=== PATIENT | male | born 1955 | race Caucasian/White ===

== ENCOUNTER 2017-01-22 05:36 | Emergency (ER) | payer OTHER ==
[~2017-01-22] VITALS: Ht 180.3 cm; Wt 76.2 kg
[~2017-01-22 05:36] MED LIST: ALBUTEROL2.5 MG/3 M INH; CENTRUM ULTRA1 EAC1 PO; CHANTIX1 MG PO; FLOVENT HFA12 GM INH; GINKGO BILOBA120 M1 PO; IBUPROFEN800 MG PO; IPRAT-ALBUT 0.5-3 ML INH; MONTELUKAST SOD10 MG PO; PERCOCET 5-3251 EACH PO; POTASSIUM CHLO10 MEQ PO; PREDNISONE20 MG PO; SINGULAIR10 MG PO; VITAMIN C500 M1 PO; ZITHROMAX250 MG PO
[2017-01-22] MEDS ORDERED: ASPIR-LOW81 MG PO (05:55)
[2017-01-22] MEDS ORDERED: IPRAT-ALBUT 0.5-3 ML INH (05:57)
[2017-01-22] MEDS ORDERED: LISINOPRIL10 MG PO (05:58)
[2017-01-22] MEDS ORDERED: PLAVIX75 MG PO (05:58)
[2017-01-22] MEDS ORDERED: ISOSORBIDE MONO30 MG PO (05:59)
[2017-01-22] MEDS ORDERED: ULTRAM50 MG PO (06:00)
[2017-01-22] MEDS ORDERED: AUGMENTIN 875-1 EACH PO (06:49)
[2017-01-22] MEDS ORDERED: PREDNISONE20 MG PO (06:49)
--- NOTE | 2017-01-22 17:45 | EKG ---
[facility] [address] [facility] [place], [place] [address] Signed Sinus tachycardia Otherwise normal ECG No previous ECGs available Confirmed by OMAR SOTO MD ([id number]) on 01/22/2017 5:45:02 PM Electronically Signed By: OMAR SOTO MD 01/22/17 1745 PATIENT NAME: MAITE MARIE Electrocardiogram DATE OF : 55 PHYSICIAN: OMAR SOTO MD REPORT #: [id number] REPORT IS CONFIDENTIAL AND NOT TO BE RELEASED WITHOUT AUTHORIZATION
== END 2017-01-22 09:06 | disposition home or self-care (01) ==
LOC: ED 05:36
DX: J44.1 Chronic obstructive pulmonary disease with (acute) exacerbation (principal); J44.0 Chronic obstructive pulmonary disease with (acute) lower respiratory infection; J20.9 Acute bronchitis, unspecified; Z79.899 Other long term (current) drug therapy; F17.200 Nicotine dependence, unspecified, uncomplicated; I25.2 Old myocardial infarction; Z79.82 Long term (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 aspirin; Z86.19 Personal history of other infectious and parasitic diseases
CPT/HCPCS: 71010; 80053; 83735; 84484; 85025; 93005; 93010; 94645; 96374; 96375; 96376; 99284; J2930

== ENCOUNTER 2017-01-23 05:36 | Inpatient (IN) | payer OTHER ==
[~2017-01-23] VITALS: Ht 180.3 cm; Wt 65.1 kg
[~2017-01-23 05:36] MED LIST changes: +ASPIR-LOW81 MG PO; +AUGMENTIN 875-1 EACH PO; +ISOSORBIDE MONO30 MG PO; +LISINOPRIL10 MG PO; +PLAVIX75 MG PO; +ULTRAM50 MG PO
[2017-01-24] MEDS ORDERED: SPIRIVA18 MCG INH (13:34)
[2017-01-26] MEDS ORDERED: AUGMENTIN 875-1 EACH PO (10:15)
[2017-01-26] MEDS ORDERED: IPRAT-ALBUT 0.5-3 ML INH (10:16)
[2017-01-26] MEDS ORDERED: SPIRIVA18 MCG INH (10:16)
[2017-01-26] MEDS ORDERED: PSEUDOEPHEDRIN120 MG PO (10:17)
[2017-01-26] MEDS ORDERED: NICOTROL N10 MG/1 ML NAS (10:23)
[2017-01-26] MEDS ORDERED: PLAVIX75 MG PO (10:23)
[2017-01-26] MEDS ORDERED: LIPITOR20 MG PO (10:23)
[2017-01-26] MEDS ORDERED: DILTIAZEM 24HR120 MG PO (10:24)
[2017-01-26] MEDS ORDERED: ISOSORBIDE MONO30 MG PO (10:24)
[2017-01-26] MEDS ORDERED: LISINOPRIL10 MG PO (10:25)
[2017-01-26] MEDS ORDERED: MIRALAX17 GM PO (10:26)
[2017-01-26] MEDS ORDERED: PREDNISONE20 MG PO (10:28)
[2017-01-26] MEDS ORDERED: BUDESONIDE0.5 MG/2 M INH (10:29)
[2017-01-26] MEDS ORDERED: FLUTICASONE P15.8 ML NAS (10:29)
[2017-01-26] MEDS ORDERED: ASPIR-LOW81 MG PO (10:31)
== END 2017-01-26 13:30 | disposition home or self-care (01) | DRG 190 ==
LOC: ED 05:36 → CCU 07:13 → MS 17:15
PROVIDERS: ADMIT Internal Medicine
DX: J44.1 Chronic obstructive pulmonary disease with (acute) exacerbation (principal); J96.01 Acute respiratory failure with hypoxia; J32.4 Chronic pansinusitis; J01.41 Acute recurrent pansinusitis; I25.10 Atherosclerotic heart disease of native coronary artery without angina pectoris; I10 Essential (primary) hypertension; F17.210 Nicotine dependence, cigarettes, uncomplicated; I25.2 Old myocardial infarction
CPT/HCPCS: 36600; 71010; 80053; 82803; 85025; 94640; 94644; 94667; 94668; 94760; 94761; 96374; 99285; 99406; G0237; J1650; J2930

== ENCOUNTER 2017-03-26 06:41 | Emergency (ER) | payer OTHER ==
[~2017-03-26] VITALS: Ht 180.3 cm; Wt 65.1 kg
[~2017-03-26 06:41] MED LIST changes: +BUDESONIDE0.5 MG/2 M INH; +DILTIAZEM 24HR120 MG PO; +FLUTICASONE P15.8 ML NAS; +LIPITOR20 MG PO; +MIRALAX17 GM PO; +NICOTROL N10 MG/1 ML NAS; +PSEUDOEPHEDRIN120 MG PO; +SPIRIVA18 MCG INH
[2017-03-26] MEDS ORDERED: ZITHROMAX250 MG PO (08:58)
[2017-03-26] MEDS ORDERED: TESSALON PERLE100 MG PO (09:01)
[2017-03-26] MEDS ORDERED: PREDNISONE20 MG PO (09:01)
[2017-03-26] MEDS ORDERED: VIRTUSSIN AC L118 ML PO (09:01)
[2017-08-22] MEDS ORDERED: ISOSORBIDE MONO30 MG PO (13:02)
[2017-08-22] MEDS ORDERED: CLOPIDOGREL75 MG PO (13:02)
== END 2017-03-26 09:25 | disposition home or self-care (01) ==
LOC: ED 06:41
DX: J44.0 Chronic obstructive pulmonary disease with (acute) lower respiratory infection (principal); J20.8 Acute bronchitis due to other specified organisms; J44.1 Chronic obstructive pulmonary disease with (acute) exacerbation; F17.200 Nicotine dependence, unspecified, uncomplicated; Z86.19 Personal history of other infectious and parasitic diseases; Z79.899 Other long term (current) drug therapy; Z79.82 Long term (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 aspirin
CPT/HCPCS: 71046; 80053; 85025; 87502; 96374; 99283; J2930; J7030

== ENCOUNTER 2017-03-30 13:26 | Inpatient (IN) | payer OTHER ==
[~2017-03-30] VITALS: Ht 180.3 cm; Wt 65.1 kg
[~2017-03-30 13:26] MED LIST changes: +TESSALON PERLE100 MG PO; +VIRTUSSIN AC L118 ML PO
--- NOTE | 2017-03-30 17:30 | NUR ---
assumed care, pt resting in bed, beside report given by Buffy - pt alert, sob - o2 on and RT called for treatment.
--- NOTE | 2017-03-30 17:34 | NUR ---
PATIENT ADMITTED TO MEDICAL SUGICAL FLOOR ROOM 119 FROM THE ER ON OXYGEN AT 2L PER NASAL CANNULA. HE IS SOB AND RT CALLED FOR A NEBULIZER TX. PATIENT HAS RHONCI BILATERAL IN HIS LUNGS WITH A PRODUCTIVE COUGH WITH THICK GREEN SPUTUM. DINNER IS ORDERED AND PATIENT IS ORIENTED TO HIS ROOM. IV BOLUS OF LR RUNNING AND PM MEDICATION GIVEN TO HIM AT THIS TIME.
--- NOTE | 2017-03-30 18:17 | NUR ---
PT IS RESTING IN BED SAFELY WITH CALL LIGHT IN REACH. PT IS WAITING ON DINNER TRAY, KITCHEN IS RUNNING BEHIND
--- NOTE | 2017-03-30 18:35 | NUR ---
pt resting - educated on new rx for kcl oral - iv now at 125 LR
--- NOTE | 2017-03-30 19:00 | NUR ---
BEDSIDE REPORT RECEIVED FROM KAREN WAHL. PT LYING IN BED, SLEEPING, AWAKENS WITH RNS ENTERING ROOM. PT ON 2L OXYGEN BY NASAL CANNULA, BREATHING IS NON-LABORED. IVF INFUSING WNL. PT ATE 100% MEAL, TRAY REMOVED FROM ROOM. CALL LIGHT GIVEN TO PT. WILL CONTINUE TO MONITOR.
--- NOTE | 2017-03-30 20:11 | NUR ---
PATIENT CALLED TO HAVE HEAT TURNED DOWN. WHITEBOARD UPDATED.
--- NOTE | 2017-03-30 21:03 | NUR ---
PT SLEEPING, RR 24, OXYGEN 2L ON BY NC, IVF INFUSING, LIGHTS OFF IN ROOM.
--- NOTE | 2017-03-30 22:30 | NUR ---
IN PT ROOM FOR ASSESSMENT, PTS LUNGS COARSE THROUGHOUT, WHEEZING NOTED. PT COUGHING, PRODUCTIVE, ENCOURAGED PT TO USE IS, COUGH, AND DRINK WATER. BOWEL TONES ACTIVE, PT UP TO RESTROOM AT THIS TIME FOR BM AND UNMEASURED VOID. PT SOB WITH AMBULATION, BACK TO BED AT THIS TIME. EDUCATED ON MEDICATION ADMINISTRATION, IVF. PT VERBALIZED UNDERSTANDING. ALERT AND ORIENTED, ON 2L OXYGEN BY NASAL CANNULA. CALL LIGHT IN REACH, PT REQUESTED COFFEE.
--- NOTE | 2017-03-31 00:57 | NUR ---
PT SLEEPING, RR 24. RT MIGUEL A IN ROOM AT THIS TIME TO START SCHEDULED NEBULIZER. PT CURRENTLY ON 2L OXYGEN BY NC, CONTINUES TO COUGH.
--- NOTE | 2017-03-31 01:53 | NUR ---
IN PT ROOM TO CHECK ON PT, PT SLEEPING, ON 2L OXYGEN BY NASAL CANNULA, CONTINUES TO USE ACCESSORY MUSCLES WITH BREATHING, COUGHING, EYES CLOSED, IVF INFUSING.
--- NOTE | 2017-03-31 03:20 | NUR ---
PT ASSESSMENT COMPLETE AT THIS TIME, PTS LUNGS CLEAR THROUGHOUT, WITH EXPIRATORY WHEEZE HEARD. PT IS SLEEPING, IVF INFSUING WNL IN RIGHT FOREARM AT 125 ML/HR. PT ON 2L OXYGEN BY NASAL CANNULA. PT HAS CALL LIGHT IN REACH. LIGHTS OFF IN ROOM.
--- NOTE | 2017-03-31 04:24 | NUR ---
RT MIGUEL A IN PT ROOM FOR BREATHING TREATMENT AT THIS TIME.
--- NOTE | 2017-03-31 06:08 | NUR ---
ANSWERED CALL LIGHT, PT URGENTLY REQUESTING TO USE RESTROOM, LOOSE STOOL UPON STANDING, SOILED PERSONAL JEANS. ASSISTED TO BSC FOR LIQUID BM. PT GIVEN WARM WIPES, PANTS TO WEAR. PT ASSESSMENT COMPLETE LUNGS DIMINISHED, COARSE, W WHEEZES THROUGHOUT, PT CONTINUES TO HAVE PRODUCTIVE COUGH AND SOB WITH AMBULATION TO COMMODE. BOWEL TONES HYPERACTIVE. CALL LIGHT IN REACH, PT GIVEN ENSURE TO DRINK. LIGHTS OFF IN ROOM, NO ADDITIONAL REQUESTS.
--- NOTE | 2017-03-31 06:37 | NUR ---
PT ON 2L OXYGEN NC THROUGHOUT SHIFT, SOB WITH AMBULATION, PT STEADY ON FEET, SBA. CONTINUES TO RECEIVE IVF WNL. SCHEDULED BREATHING TREATMENTS, PRODUCTIVE COUGH AND COARSE LUNGS W WHEEZES HEARD. PT INCONTINENT OF STOOL THIS AM DUE TO URGENCY. USING BSC.
--- NOTE | 2017-03-31 07:10 | NUR ---
bedside report taken, pt sleeping rrr. o2 on iv fusing well at 125 call light in reach
--- NOTE | 2017-03-31 09:21 | NUR ---
pt pulled his call lght to order his breakfast.
--- NOTE | 2017-03-31 09:34 | NUR ---
pt awake and up for meal. declined tyleol for pain in feet due to hep c. Iv fusing well. denies other needs. sob at rest and o2 2l nc current. occasional cough.
--- NOTE | 2017-03-31 10:38 | NUR ---
PT IS RESTING IN BED SAFELY WITH CALL LIGHT IN REACH. PT IS STILL WORKING ON HIS BREAKFAST
--- NOTE | 2017-03-31 14:17 | NUR ---
pt denies nicotine support at this time, resting.
--- NOTE | 2017-03-31 14:50 | NUR ---
in rm with dr. hall - pt coughing, denies needs - sleepy.
--- NOTE | 2017-03-31 15:12 | NUR ---
PT IS RESTING IN BED SAFELY WITH CALL LIGHT IN REACH. PT ASKED FOR MORE COFFEE
--- NOTE | 2017-03-31 15:13 | EKG ---
[facility] [address] [facility] [place] [facility] [place], [place] [address] Signed Sinus tachycardia Otherwise normal ECG When compared with ECG of 22-JAN-2017 05:57, No significant change was found Confirmed by OMAR SOTO MD ([id number]) on 03/31/2017 3:13:40 PM Electronically Signed By: OMAR SOTO MD 03/31/17 1513 PATIENT NAME: MAITE MARIE Electrocardiogram DATE OF : 55 PHYSICIAN: OMAR SOTO MD REPORT #: [id number] REPORT IS CONFIDENTIAL AND NOT TO BE RELEASED WITHOUT AUTHORIZATION
--- NOTE | 2017-03-31 15:59 | NUR ---
PT RESTED MOST OF DAY. C/O DRY COUGH. MULTIPLE EPISOIDES OF URGENT LOOSE STOOL. IV FUSING WELL AND O2 2L NC.
--- NOTE | 2017-03-31 19:10 | NUR ---
RECEIVED REPORT FROM RN. PATIENT RESTING COMFORTABLY IN BED, BREATHING IS EVEN AND UNLABORED. DENIES NEEDS AT THIS TIME. ON 2L O2 VIA NC, IV FLUIDS INFUSING. CALL LIGHT WITHIN REACH.
--- NOTE | 2017-03-31 21:16 | NUR ---
PATIENT RESTING COMFORTABLY IN BED, BREATHING IS EVEN, BUT TACHYPNEIC. PATIENT STATES "I WAS JUST COUGHING BEFORE YOU CAME IN." BREATHING QUICKLY BECOMES UNLABORED. DENIES NEEDS AT THIS TIME. ASSESSMENT DONE, MEDICATIONS GIVEN. CALL LIGHT WITHIN REACH.
--- NOTE | 2017-03-31 22:30 | NUR ---
PATIENT REQUESTING TO USE URINAL. NO OTHER NEEDS AT THIS TIME. BREATHING IS EVEN, BECOMES LABORED WITH LIGHT ACTIVITY. NOW RESTING AGAIN COMFORTABLY IN BED, BREATHING EVEN AND UNLABORED. CALL LIGHT WITHIN REACH.
--- NOTE | 2017-04-01 00:45 | NUR ---
PATIENT RESTING COMFORTABLY IN BED, BREATHING IS EVEN AND UNLABORED. O2 SATURATION IS 95% ON 2L O2 VIA NC. DENIES NEEDS AT THIS TIME. CALL LIGHT WITHIN REACH.
--- NOTE | 2017-04-01 02:49 | NUR ---
PATIENT RESTING COMFORTABLY IN BED, BREATHING IS EVEN AND UNLABORED. CALL LIGHT WITHIN REACH.
--- NOTE | 2017-04-01 04:44 | NUR ---
PATIENT REQUESTING BREATHING TREATMENT. LUNGS HAVE WHEEZES THROUGHOUT ALL ROMERO. O2 SATURATION IS 95% ON 2L O2 VIA NC. DENIES FURTHER NEEDS AT THIS TIME. CALL LIGHT WITHIN REACH.
--- NOTE | 2017-04-01 04:44 | NUR ---
PATIENT'S NIGHT WAS UNEVENTFUL. HE HAS BEEN RESTING COMFORTABLY IN BED THROUGHOUT SHIFT. VSS, URINE OUTPUT QS. NO COMPLAINTS OF PAIN. REQUIRES 2L O2 TO MAINTAIN O2 SATURATION >90%. IV FLUIDS INFUSING. SBA TO BATHROOM, CALLS APPROPRIATELY. NO ACUTE CHANGES FROM BEGINNING OF SHIFT.
--- NOTE | 2017-04-01 06:16 | NUR ---
PATIENT RESTING COMFORTABLY IN BED, BREATHING EVEN AND UNLABORED ON 2L O2 VIA NC. DENIES NEEDS AT THIS TIME. MEDICATION GIVEN. CALL LIGHT WITHIN REACH.
--- NOTE | 2017-04-01 07:05 | NUR ---
bedside report given by shaina rn. no changes - pt eyes closed RRR. nad.
--- NOTE | 2017-04-01 14:39 | NUR ---
in rm with Dr. gonzalez and pt - enc amb. and check 02. iv fusing well. toll lunch well. occasional cough.
--- NOTE | 2017-04-01 17:31 | NUR ---
attempted to amb. pt - he refused he is watching football.
--- NOTE | 2017-04-01 18:28 | NUR ---
pt enc. to amb - but declines - watching football. Iv fusing well, o2 2lnc titrate/test with ambulation. eating well, cough, po abx, solumedrol iv. sob is improved.
--- NOTE | 2017-04-01 18:37 | NUR ---
PATIENT REFUSED HIS SHOWER. HE ALSO LIKES THE TEMP. DOWN AT 68 IN ROOM AND THE DOOR CLOSED.
--- NOTE | 2017-04-01 18:38 | NUR ---
corrected end of shif summary to include IV dc to sl per dr hall.
--- NOTE | 2017-04-01 22:08 | NUR ---
PT LYING IN BED WATCHING TV. REPORTS HEADACHE, RATES 3/10. STATES THAT THIS IS TOLERABLE. PT QUESTIONING TIMING OF MEDICATIONS INCLUDING SOLUMEDROL AND ABX. ALL QUESTIONS ANSWERED. PT REPORTS SLIGHT SOB. PT ASSESSMENT COMPLETE. EXPIRATORY WHEEZES NOTED TO ALL LUNG ROMERO, DO NOT CLEAR WITH COUGH. PT DENIES NEEDS AT THIS TIME. AGREES TO USE CALL LIGHT FOR NEEDS, CALL LIGHT WITHIN REACH. PT'S DOOR CLOSED TO KEEP ROOM COOL PER PT REQUEST.
--- NOTE | 2017-04-01 23:01 | NUR ---
PT USES CALL LIGHT, REQUESTING COFFEE AND MILK. DENIES OTHER NEEDS, CALL LIGHT WITHIN REACH.
--- NOTE | 2017-04-02 00:52 | NUR ---
PT RESTING IN BED ON L SIDE. PT DOES NOT MOVE WHEN DOOR OPENED. RESPIRATIONS EVEN AND UNLABORED. NO S/SX OF DISTRESS NOTED. PT APPEARS TO BE SLEEPING. CALL LIGHT WITHIN REACH.
--- NOTE | 2017-04-02 02:56 | NUR ---
PT CALLS REQUESTING MILK AND ORANGE JUICE. PT LYING IN BED WATCHING TV. PT ASSESSMENT COMPLETE, UNCHANGED FROM PREVIOUS. PT CONTINUES TO REPORT HEADACHE, 3/10, TOLERABLE. PT DENIES OTHER NEEDS AT THIS TIME. CALL LIGHT WITHIN REACH.
--- NOTE | 2017-04-02 05:19 | NUR ---
PT SLEPT MOST OF SHIFT. HEADACHE, 3/10, TOLERABLE. EXPIRATORY WHEEZES TO ALL LUNG ROMERO THROUGHOUT NIGHT. OCCASIONAL PRODUCTIVE COUGH WITH YELLOW PHLEGM. O2 @ 2LPM. O2 TO BE TITRATED/ TESTED WITH AMBULATION. PT NOT ON O2 CHRONICALLY. SOLUMEDROL, PO AUGMENTIN. IV SL. SBA. UO QS.
--- NOTE | 2017-04-02 08:34 | NUR ---
FULL BODY ASSESMENT DONE, LUNG SOUNDS COURSE THROUGHOUT AND DIMINISHED IN BASES. NOTED SOME EXPIRATORY WHEEZES UPPER LOBES. PATIENT STATES " I DID NOT SLEEP WELL LAST NIGHT". ADMINISTERED MORNING MEDICATIONS. VS DONE, STABLE. 95%, 2L NC. PATIENT USING IS AND ACUPELLA. NO COMPLAINTS OF PAIN AT THIS TIME. EATING WELL. URINE CLEAR. DISCUSSED POC FOR DAY, GOAL TO GET UP AND AMBULATE IN HALLS AT LEAST ONCE.
--- NOTE | 2017-04-02 10:41 | NUR ---
04/02/17-@ 8:45- CHW saw patient in room and patient stated he is feeling better and his discharge plan is to go back [facility] [place] Patient has a couple more days of stay at the hotel and is meeting with [employer] for housing on Sunday. Patient stated he is currently working with Rosalinda from [employer] for help with housing. CHW stated she would be in contact with Rosalinda from [employer] CHW called Rosalinda from [employer] and she is not in the office today left Rosalinda a voicemial.
--- NOTE | 2017-04-02 13:51 | NUR ---
STOPPED BY TO CHECK ON PT. HE WAS SITTING IN CHAIR EATING LUNCH. HE SEEMED TO BE EXCITED TO EAT, AND I DID NOT WANT TO KEEP HIM. HE SEEMED COMFORTABLE WITH ME, AND I TOLD HIM I WOULD COME BACK AGAIN AND CHECK WITH HIM. HE THANKED ME AND DIVED BACK IN HIS LUNCH!
[2017-04-02] MEDS ORDERED: QVAR8.7 G1 INH (15:43)
--- NOTE | 2017-04-02 15:43 | NUR ---
WALKED PATIENT IN THE HALLWAY. 6 LAPS AROUND [employer]. CHANGED LINENS. ASSISTED PATIENT INTO SHOWER. PATIENT IS TAKING SHOWER INDEPENDENTLY. STAND-BY ASSIST. IF NEEDED.
[2017-04-02] MEDS ORDERED: PLAVIX75 MG PO (16:54)
[2017-04-02] MEDS ORDERED: TAMSULOSIN HCL0.4 MG PO (16:56)
[2017-04-02] MEDS ORDERED: CHANTIX1 MG PO (16:59)
--- NOTE | 2017-04-02 17:56 | NUR ---
DR. SOTO ROUNDED TO ROOM, ORDERED TO AMBULATE PATIENT IN HALLS ON RA AND SEE IF OXYGEN SATURATION SUSTAINS AND PATIENT TOLERATES ACTIVITY. PATIENT TOLERATED 6 LAPS IN HALLS. OXYGEN SATURATION 88-89% WITH EXERTION, WHEN SITS ON EDGE OF BED OXYGEN SATURATION 94-95% ON RA. PATIENT DOES NOT APPEAR SOB, CONTINUES TO HAVE DRY BARKY COUGH. VS STABLE. PATIENT VOIDING WELL.
--- NOTE | 2017-04-02 18:00 | NUR ---
PATIENT UP TO SHOWER, DID LAPS IN HALLS RA OXYGEN SATURATION 88-89%. PATIENT STATES " I FEEL BETTER TODAY AND WOULD LIKE TO GO TO THE [place] TOMORROW" REPORTS FEELING BETTER. LUNG SOUNDS CONITNUE TO SOUND COURSE WITH LIMITED AIR MOVEMENT. NO COMPLAITNS OF PAIN TODAY, VOIDING WELL. VS STABLE.
--- NOTE | 2017-04-02 21:42 | NUR ---
PT USES CALL LIGHT, WANTS HIS "NINE O'CLOCK ANTIBIOTIC". CAREER ORIENTATION TEACHER TOOK SCHEDULED MEDICATIONS TO ROOM. MEDICATION EDCUATION PROVIDED REGARDING SCHEDULING OF ANTIBIOTIC. PT SHOUTS "THE DOCTOR WAS JUST IN HERE TELLING ME THAT IT IS DUE AT NINE O'CLOCK". PT REMINDED THAT DOCTOR CHANGED HIS STEROID, NOT ANTIBIOTIC. PT REMEMBERS THIS AFTER BEING REMINDED. PT VERY APOLOGETIC FOR SHOUTING. PT ASSESSMENT COMPLETED. PT REQUESTING ASIA JUDD, MAINTENANCE SERVICE SUPERVISOR NOTIFIED. PT DENIES OTHER NEEDS AT THIS TIME. CALL LIGHT WITHIN REACH.
--- NOTE | 2017-04-02 23:46 | NUR ---
PT LYING IN BED WATCHING TV. STATES "I'M DOING BETTER THAN EARLIER." DENIES NEEDS AT THIS TIME. CALL LIGHT WITHIN REACH.
--- NOTE | 2017-04-03 00:07 | NUR ---
PT LYING IN BED ON L SIDE. WAKES EASILY WHEN MAINTAINER OPERATOR ENTERS ROOM. NEB TX ADMINISTERED. PT DENIES NEEDS AT THIS TIME. CALL LIGHT WITHIN REACH.
--- NOTE | 2017-04-03 04:25 | NUR ---
PT SITTING UP IN BED WATCHING TV. ASSESSMENT COMPLETE. PT REQUESTS FRESH COFFEE, PROVIDED. RT IN ROOM TO ADMINISTER SCHEDULED NEB. PT DENIES FURTHER NEEDS.
--- NOTE | 2017-04-03 05:22 | NUR ---
PT UP OFF AND ON THIS SHIFT. O2 BETWEEN 91-93% ON RA. EXPIRATORY WHEEZES CONTINUE. DENIES SOB. SCHEDULED NEBS. UO QS. IV SL. SBA.
--- NOTE | 2017-04-03 07:20 | NUR ---
REPORT RECEIVED FROM KAREN BATISTA. PT IN BED BUT AWAKE. HAS 1L NC ON BUT STATES HE PUT IT ON HIMSELF FOR ASSURANCE. EDUCATED ON THE FACT HE DOES NOT NEED IT AND SHOULD NOT BE PUTTING IT ON SELF.
--- NOTE | 2017-04-03 08:49 | NUR ---
PT ASLEEP IN BED. UPDATED ANNA. WILL CHECK BACK ON LATER.
[2017-04-03] MEDS ORDERED: AMOX TR-K CLV1 EAC1 PO (10:21)
[2017-04-03] MEDS ORDERED: IPRAT-ALBUT 0.5-3 ML INH (10:22)
[2017-04-03] MEDS ORDERED: PREDNISONE20 MG PO (10:24)
[2017-04-03] MEDS ORDERED: SEREVENT DISKU1 PUFF INH (10:25)
--- NOTE | 2017-04-03 10:45 | NUR ---
IV REMOVED WNL. PT GIVEN SCRUB BOTTOMS TO GO HOME IN. CALLING TAXI FOR PT. PRESCRIPTS CALLED TO [facility]. EDUCATION GIVEN REGARDING S\S TO CALL DR FOR. AND WHEN TO COME TO ED. PT VERBALIZED UNDERSTANDING. VS STABLE.
[2017-08-22] MEDS ORDERED: ISOSORBIDE MONO30 MG PO (13:02)
[2017-08-22] MEDS ORDERED: CLOPIDOGREL75 MG PO (13:02)
== END 2017-04-03 11:10 | disposition home or self-care (01) | DRG 189 ==
LOC: ED 13:26 → MS 16:35
PROVIDERS: ADMIT Internal Medicine
DX: J96.01 Acute respiratory failure with hypoxia (principal); J44.1 Chronic obstructive pulmonary disease with (acute) exacerbation; B17.10 Acute hepatitis C without hepatic coma; E87.6 Hypokalemia; E86.0 Dehydration; K59.09 Other constipation; I25.10 Atherosclerotic heart disease of native coronary artery without angina pectoris; Z59.0 Homelessness; F17.200 Nicotine dependence, unspecified, uncomplicated; I10 Essential (primary) hypertension; E78.5 Hyperlipidemia, unspecified
CPT/HCPCS: 36415; 36600; 71045; 80048; 80053; 82803; 83605; 83735; 84484; 85025; 87040; 93005; 93010; 94640; 94668; 94760; 96374; 99285; 99406; J1650; J2930; J7120

== ENCOUNTER 2017-04-12 15:15 | Emergency (ER) | payer OTHER ==
[~2017-04-12] VITALS: Ht 180.3 cm; Wt 65.1 kg
[~2017-04-12 15:15] MED LIST changes: +AMOX TR-K CLV1 EAC1 PO; +QVAR8.7 G1 INH; +SEREVENT DISKU1 PUFF INH; +TAMSULOSIN HCL0.4 MG PO
[2017-04-12] MEDS ORDERED: TAMIFLU75 MG PO (19:36)
[2017-04-12] MEDS ORDERED: PREDNISONE20 MG PO (19:36)
[2017-08-22] MEDS ORDERED: CLOPIDOGREL75 MG PO (13:02)
[2017-08-22] MEDS ORDERED: ISOSORBIDE MONO30 MG PO (13:02)
== END 2017-04-12 19:54 | disposition home or self-care (01) ==
LOC: ED 15:15
DX: J10.1 Influenza due to other identified influenza virus with other respiratory manifestations (principal); J44.9 Chronic obstructive pulmonary disease, unspecified; I25.2 Old myocardial infarction; J45.909 Unspecified asthma, uncomplicated; F17.200 Nicotine dependence, unspecified, uncomplicated; Z86.19 Personal history of other infectious and parasitic diseases; Z79.899 Other long term (current) drug therapy; Z79.82 Long term (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 aspirin; Z79.52 Long term (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 systemic steroids
CPT/HCPCS: 71046; 80053; 85025; 87502; 94640; 96374; 99284; J2930

== ENCOUNTER 2017-04-25 13:33 | Observation (INO) | payer OTHER ==
[~2017-04-25] VITALS: Ht 180.3 cm; Wt 66.3 kg
[~2017-04-25 13:33] MED LIST changes: +TAMIFLU75 MG PO
--- NOTE | 2017-04-25 15:02 | EKG ---
[facility] [address] [facility] [place], [place] [address] Signed Sinus tachycardia Otherwise normal ECG When compared with ECG of 30-MAR-2017 13:38, No significant change was found Confirmed by BE GREY MD ([id number]) on 04/25/2017 3:01:50 PM Electronically Signed By: BE GREY MD 04/25/17 1502 PATIENT NAME: MAITE MARIE Electrocardiogram DATE OF : 55 PHYSICIAN: BE GREY MD REPORT #: [id number] REPORT IS CONFIDENTIAL AND NOT TO BE RELEASED WITHOUT AUTHORIZATION
--- NOTE | 2017-04-25 20:00 | NUR ---
RECEIVED REPORT AT 1900 FOUND PT JUST ARRIVING ON THE FLOOR. PT IS ALERT AND ORIENTED AND IS EATING DINNER AT THIS TIME.
--- NOTE | 2017-04-25 22:00 | NUR ---
V/S ARE WDL, UPPER LOBES BILATERALLY ARE CLEAR, BILATERAL LOWER LOBES HAVE SOME EXPIRATORY WHEEZING. ABD SOUND ARE PRESENT, NO PERIPHERAL EDEMA NOTED. PT IS IN GOOD SPIRITS. NO NEW CONCERNS AT THIS TIME.
--- NOTE | 2017-04-25 22:59 | NUR ---
BROUGHT PT SOME SOFIA CRACKERS PER HIS REQUEST. PT NEEDS NOTHIN ELSE AT THIS TIME. BEDSIDE TABLE AND CALL LIGHT WITHIN REACH.
--- NOTE | 2017-04-26 00:15 | NUR ---
PT IS SLEEPING AT THIS TIME.
--- NOTE | 2017-04-26 02:07 | NUR ---
VITALS AND I&OS DONE AND CHARTED. BEDSIDE TABLE AND CALL LIGHT WITHIN REACH.
--- NOTE | 2017-04-26 02:14 | NUR ---
PT IS STILL SLEEPING.
--- NOTE | 2017-04-26 04:16 | NUR ---
PT IS SLEEPING AT THIS TIME.
--- NOTE | 2017-04-26 05:14 | NUR ---
PT HAS BEEN SLEEPING MOST OF THIS SHIFT. PT REFUSED HIS 2100 CHANTIX STATING THAT HE NO LONGER NEEDS IT. PT HAD EXIRATORY WHEEZING IN BILATERAL LOWER LOBES, UPPER LOBES ARE CLEAR. PT IS STILL COUGHING AT TIMES. URINE OUTPUT IS ADEQUATE, PT DENIES SOB OR CHEST DISCOMFORT. NO NEW CONCERNS NOTED SO FAR FOR THIS PT.
--- NOTE | 2017-04-26 07:42 | NUR ---
BEDSIDE REPORT RECEIVED FROM JULIAN. PATIENT FOUND IN BED SLEEPING AT TIME OF REPORT. NO APPARENT DISTRESS NOTED. RR EVEN/UNLABORED.
--- NOTE | 2017-04-26 07:50 | NUR ---
BEDSIDE REPORT RECEIVED FROM CECILE. PATIENT RESTING IN BED APPEARS TO BE SLEEPING. NO APPARENT DISTRESS NOTED. RR EVEN/UNLABORED.
--- NOTE | 2017-04-26 09:20 | NUR ---
PATIENT FOUND SITTING IN BED WATCHING TV. DENIES PAIN. REPORTS SOB. PRODUCTIVE COUGH NOTED. EXPIRATORY WHEEZE, AND COARSENESS AUSCULTED THROUGHOUT THE LUNGS FIELD. IV SITE PATENT AND FLUSHED WELL. PATIENT IS ON ROOM AIR AND SAT IN THE UPPER 90-95. NO APPARENT DISTRESS NOTED. CALL LIGHT IN REACH
--- NOTE | 2017-04-26 10:11 | NUR ---
PT IS RESTING IN BED SAFELY WITH CALL LIGHT IN REACH. PT AGREED TO SHOWER BUT WOULD LIKE TO WAIT UNTIL AFTER LUNCH. PT DID NOT NEED ANYTHING ELSE AT THE [facility]
[2017-04-26] MEDS ORDERED: PREDNISONE10 MG PO (12:15)
--- NOTE | 2017-04-26 13:53 | NUR ---
PT WAITING TO BE DC'D. WHEN HE FOUND OUT WARMING STATION WAS CLOSED FOR THE NEXT FEW DAYS, HE NEEDED HIS SLEEPING BAG INSIDE. WAS ABLE TO CONNECT WITH [employer] AND RETRIEVED HIS BAG. HE WAS VERY THANKFUL. PT REQUESTED PRAYER, WILL FOLLOW NEEDED. LORD PROTECT HIM
[2017-08-22] MEDS ORDERED: ISOSORBIDE MONO30 MG PO (13:02)
[2017-08-22] MEDS ORDERED: CLOPIDOGREL75 MG PO (13:02)
== END 2017-04-26 13:40 | disposition home or self-care (01) ==
LOC: ED 13:33 → MS 13:35
PROVIDERS: ADMIT Internal Medicine
DX: J44.1 Chronic obstructive pulmonary disease with (acute) exacerbation (principal); F17.210 Nicotine dependence, cigarettes, uncomplicated; I25.2 Old myocardial infarction; I25.10 Atherosclerotic heart disease of native coronary artery without angina pectoris; I10 Essential (primary) hypertension; E78.5 Hyperlipidemia, unspecified; Z86.19 Personal history of other infectious and parasitic diseases; Z59.0 Homelessness; Z79.82 Long term (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 aspirin; Z79.51 Long term (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 inhaled steroids; Z79.899 Other long term (current) drug therapy
CPT/HCPCS: 71045; 80053; 83605; 84484; 85025; 87040; 93005; 93010; 94640; 94644; 94760; 94762; 96361; 96374; 99285; 99407; G0378; J0696; J7030; J7512

== ENCOUNTER 2017-10-25 06:40 | Day surgery (SDC) | payer OTHER ==
[~2017-10-25] VITALS: Ht 180.3 cm; Wt 73.5 kg
[~2017-10-25 06:40] MED LIST changes: +CLOPIDOGREL75 MG PO; +PREDNISONE10 MG PO
--- NOTE | 2017-10-25 12:39 | NUR ---
10/25/17 1239 Kiera Cadena 1230 PATIENT ARRIVES TO PACU AWAKE, BUT NOT FOLLOWING COMMANDS, IS MUMBLING. ALSO COUGHING ALMOST UNCONTROLABLY. MASK AT 6 LITERS. 1235 PATIENT AWAKE, BUT FORGETFUL. DENIES PAIN OR NAUSEA. RESP EVEN AND UNLABORED, COUGHING IS IMPROVED.
[2017-10-25] MEDS ORDERED: OXYCODON-ACETA1 EAC2 PO (12:40)
[2017-10-25] MEDS ORDERED: IBUPROFEN600 MG PO (12:42)
--- NOTE | 2017-10-25 13:05 | NUR ---
PT ARRIVES TO DS RM 5 FROM PACU AWAKE AND ALERT. PT SIPPING ON MILK ON ARRIVAL. PT DENIES ANY N/V AND STATES HE HAS NO PAIN. VSS. SCD'S IN PLACE, CALL LIGHT AT PT LEFT SIDE. PT HAS CHRONIC COUGH AND IS ENCOURAGED TO USE PILLOW TO BRACE ABDOMEN WHEN COUGHING. PT IS "STARVING" AND SANDWICH AND FRUIT ARE REQUESTED AND ORDERED. CBG OBTAINED: 85. PT IS EAGER TO GO HOME.
--- NOTE | 2017-10-25 14:03 | NUR ---
PT TOLERATES PO WELL. PT WANTING TO GO HOME. DC CRITERIA EXPLAINED TO PT, PT NEEDS TO AMBULATE AND VOID BEFORE DC'ING. PT DRINKING WATER, INSTRUCTED TO LET RN KNOW WHEN HE WOULD LIKE TO GET UP OUT OF BED.
--- NOTE | 2017-10-25 14:43 | NUR ---
PT USES CALL LIGHT TO ALERT RN OF URGE TO VOID. PT AMBULATES WELL WITH RN ASSIST TO BR. PT ABLE TO VOID 100 MLS CONCENTRATED URINE. PT REQUESTS TO GET DRESSED. DC CRITERIA MET. DC INSTRUCTIONS GIVEN TO PT WITH ALL QUESTIONS ANSWERED. TAXI CALLED FOR PT RIDE HOME. PT DC'S FROM DS RM 5 VIA WC.
--- NOTE | 2017-10-25 18:57 | OR ---
[facility] [address] [place], [place] [address] Signed DATE OF OPERATION: 10/25/2017 SURGEON: Rob Hughes MD PREOPERATIVE DIAGNOSIS: Hepatitis C. POSTOPERATIVE DIAGNOSIS: Hepatitis C with mild cirrhotic changes. No evidence of ascites. PROCEDURE: Laparoscopic liver biopsy, left medial segment. ANESTHESIA: General endotracheal; Oz Boucher CRNA and local 10 mL of 0.25% Marcaine with epinephrine. INDICATION: This 62-year-old white man is known to have hepatitis C and is referred by Dr. Soto for consideration of liver biopsy to better guide therapy specifically therapy for hepatitis C. He has other medical problems. Smokes half pack of cigarettes a day. Drinks alcohol quite rarely and has underlying COPD and coronary artery disease. He has had myocardial infarction x3 and is on Plavix generally. He is admitted at this time to undergo laparoscopic liver biopsy upon referral from Dr. Soto for staging of his liver disease, anticipating possible antiviral therapy. The risk of bleeding, infection, and other unforeseen complications related to liver biopsy were reviewed with him. He understands and wished to proceed. FINDINGS: The liver had chronic inflammatory change. No excessive gross nodularity, however. There is no ascites. The gallbladder was chronically inflamed, but floppy. A biopsy was taken in the medial segment of the left lobe of the liver without problem. Bleeding was easily controlled with electrocautery. A good specimen was noted. DESCRIPTION OF PROCEDURE: The patient was brought to the operating room, given a general endotracheal anesthetic. Preoperative antibiotic Ancef was given. Sequential compression device stockings used and heparin subcutaneously administered. The abdomen was prepared with a chlorhexidine solution and draped sterilely. With meticulous care, an infraumbilical incision was made and using an open Luba cannula technique, the abdomen entered without problem. Electronically Signed By: ROB HUGHES MD 10/25/17 1857 PATIENT NAME: MAITE MARIE OPERATIVE REPORT DATE OF : 55 REPORT #: [id number] PHYSICIAN: ROB HUGHES MD PCP: OMAR SOTO MD REPORT IS CONFIDENTIAL AND NOT TO BE RELEASED WITHOUT AUTHORIZATION [facility] [address] [place], [place] [address] Signed There was no sign of ascites. Pneumoperitoneum was achieved to a level of 14 mmHg of carbon dioxide gas. Intraabdominal inspection was undertaken showing chronically inflamed liver with scarring and blunted edge and findings suggestive of early cirrhosis. There was no sign of hepatoma. The gallbladder had a chronic inflammatory appearance, that was floppy. An epigastric port was placed 5 mm in size and subsequently a biopsy again core biopsy obtained in the medial segment of the left lobe of the liver. Bleeding was controlled with a small amount of electrocautery. Irrigation was undertaken. The puncture side of the abdominal wall had a minimal amount of bleeding and this was secured was this cautery as well. Irrigation was undertaken in excess irrigation fluid was suctioned free. The trocar was removed under direct visualization as was the Luba cannula. The infraumbilical fascial incision was reapproximated with interrupted 0 Vicryl suture. All wounds were copiously irrigated with saline solution. Skin closed with interrupted 3-0 Vicryl. Steri-Strips were applied. The patient tolerated the procedure well. There was no sign of complication in any way. Rob Hughes MD JM/MODL /[id number] cc: Omar Soto MD Copies: OMAR SOTO MD ~ Electronically Signed By: ROB HUGHES MD 10/25/17 1857 PATIENT NAME: MAITE MARIE OPERATIVE REPORT DATE OF : 55 REPORT #: [id number] PHYSICIAN: ROB HUGHES MD PCP: OMAR SOTO MD REPORT IS CONFIDENTIAL AND NOT TO BE RELEASED WITHOUT AUTHORIZATION
== END 2017-10-25 14:35 | disposition home or self-care (01) ==
LOC: DS 06:40
PROVIDERS: Surgery
PROC: 0FB24ZX Excision of Left Lobe Liver, Percutaneous Endoscopic Approach, Diagnostic (ICD-10-PCS; principal; 2017-10-25 08:15)
DX: K74.0 Hepatic fibrosis (principal); B18.2 Chronic viral hepatitis C; K74.60 Unspecified cirrhosis of liver; F17.210 Nicotine dependence, cigarettes, uncomplicated; J44.9 Chronic obstructive pulmonary disease, unspecified; I25.10 Atherosclerotic heart disease of native coronary artery without angina pectoris; I25.2 Old myocardial infarction; Z79.82 Long term (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 aspirin; Z79.02 Long term (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 antithrombotics/antiplatelets; Z79.899 Other long term (current) drug therapy; Z79.51 Long term (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 inhaled steroids
CPT/HCPCS: 00840; 88307; 88313; J0690; J1100; J2250; J2405; J2704; J3010; J7120

== ENCOUNTER 2018-04-20 09:40 | Inpatient (IN) | payer OTHER ==
[~2018-04-20] VITALS: Ht 180.3 cm; Wt 68.0 kg
[~2018-04-20 09:40] MED LIST changes: +IBUPROFEN600 MG PO; +OXYCODON-ACETA1 EAC2 PO
[2018-04-20] MEDS ORDERED: ISOSORBIDE DINI30 MG PO (10:05)
[2018-04-20] MEDS ORDERED: PROAIR HFA8.5 GM INH (10:07)
[2018-04-20] MEDS ORDERED: SEREVENT DISKU1 PUFF INH (10:08)
[2018-04-20] MEDS ORDERED: PLAVIX75 MG PO (10:08)
[2018-04-20] MEDS ORDERED: QVAR REDIHALE10.6 G1 IH (10:08)
[2018-04-20] MEDS ORDERED: FLOMAX0.4 MG PO (10:09)
[2018-04-20] MEDS ORDERED: METOPROLOL SUCC25 MG PO (10:09)
[2018-04-20] MEDS ORDERED: ASPIR-LOW81 MG PO (10:09)
[2018-04-20] MEDS ORDERED: IPRAT-ALBUT 0.5-3 ML INH (10:11)
[2018-04-20] MEDS ORDERED: LIPITOR20 MG PO (10:11)
--- NOTE | 2018-04-20 12:26 | NUR ---
NEW ADMIT TO THE FLOOR. PT A&O X3. PT IS ON RA, RESP EVEN AND NON LABORED. PT HAS NOTABLE PROD COUGH. VS STABLE AT THIS TIME. ORIENTED PT TO ROOM AND CALL LIGHT. PERSONAL SUPPLIES AND CALL LIGHT WIHTIN REACH. NO NEEDS AT THIS TIME.
--- NOTE | 2018-04-20 14:28 | NUR ---
PATIENT IN BED. PATIENT WALKS TO USE BATHROOM. ONE PERSON ASSISTING. PATIENT BACKS TO BED. BED ALARM ON. VITAL SIGNS AND I&O DONE. CALL LIGHT WITHIN REACH. NO OTHER NEEDS AT THIS TIME
--- NOTE | 2018-04-20 16:42 | NUR ---
Medications reconciled using med list and patient interview
--- NOTE | 2018-04-20 17:51 | NUR ---
PT EATING DINNER AT THIS TIME. PT DENIES PAIN. SOB IMPROVING WITH BREATHING TX'S PER PT. PT HAS NO NEEDS AT THIS TIME. PERSONAL SUPPLIES AND CALL LIGHT WITHIN REACH. NO NEEDS AT THIS TIME.
--- NOTE | 2018-04-20 17:52 | NUR ---
SPUTUM SENT, STILL AWAITING URINE SAMPLE.
--- NOTE | 2018-04-20 18:42 | NUR ---
A&OX3. RA. BREATHING TX'S. ABX IV. MAG IV AND PO KCL GIVEN. LR @75ML/HR. TOLERATING DIET. STANDBY ASSIST TO BR. ISS.
--- NOTE | 2018-04-20 19:45 | NUR ---
REPORT RECEIVED PT RESTING IN BED, IV FLUIDS INFUSING PER EMAR WNL, PT GIVEN MILK PER PT'S REQUEST, NO FURTHER REQUESTS AT THIS TIME, DENIES SOB/CP, PT EDUCATED TO COUGH/ DEEP BREATH PT RECEPTIVE TO EDUCATION. AOX4, CALL LIGHT WITHIN REACH, FALL PRECAUTIONS IN PLACE.
--- NOTE | 2018-04-20 21:30 | NUR ---
IN ROOM TO ADMIN SCHEDULED MEDS, SHIFT ASSESSMENT COMPLETE, LS CLEAR IN UPPERS, BILATERAL LOWER LOBES NOTED TO HAVE EXPIRATORY WHEEZES, PT ON RA, O2 SAT 95%, PT C/O OCCASIONAL PRODUCTIVE COUGH, SPUTUM CLEAR/WHITE, PT DENIES ANY SOB/CP, NO C/O NAUSEA. PT ENCOURAGED TO COUGH/ DEEP BREATH, PT AGREEABLE TO POC, CMS INTACT, IV FLUIDS INFUSING PER EMAR WNL, NO REQUESTS AT THIS TIME, CALL LIGHT WITHIN REACH, FALL PRECAUTIONS IN PLACE.
--- NOTE | 2018-04-20 23:25 | NUR ---
PER PT REQUEST I BROUGHT HIM A MILK AND PLUGGED IN HIS IV TO THE WALL.
--- NOTE | 2018-04-20 23:30 | NUR ---
PT RESTING IN BED, EYES CLOSED, BREATHS EVEN, UNLABORED, ON RA, NO C/O SOB/CP, CALL LIGHT WITHIN REACH, FALL PRECAUTIONS IN PLACE. IV FLUIDS INFUSING PER EMAR.
--- NOTE | 2018-04-21 01:30 | NUR ---
PT RESTING IN BED, EYES CLOSED, BREATHS EVEN, UNLABORED, ON RA, NO C/O SOB/CP, NO REQUESTS AT THIS TIME, CALL LIGHT WITHIN REACH, FALL PRECAUTIONS IN PLACE, IV FLUIDS INFUSING PER EMAR.
--- NOTE | 2018-04-21 04:06 | NUR ---
NEW IV FLUDIS STARTED, PT AWAKE, CHOCOLATE MILK GIVEN TO PT PER PT'S REQUEST, ASSESSMENT COMPLETE, PT'S LS REMAIN WHEEZY, EDUCATION PROVIDED REGARDING MEDICATIONS AND DISEASE PROCESS, PT DENIES SOB/CP, DENIES PAIN, DENIES LIGHT HEADEDNESS OR DIZZINESS, NO FURTHER REQUESTS AT THIS TIME, CALL LIGHT WITHIN REACH, IV FLUIDS INFUSING PER EMAR. FALL PRECAUTIONS IN PLACE.
--- NOTE | 2018-04-21 08:10 | NUR ---
PT SITTING UP AT EDGE OF BED EATING BREAKFAST INDEPENDENTLY. PT ALERT AND ORIENTED TO ALL. DENIES PAIN OR OTHER CONCERNS. HAS OCCASIONAL COUGHING FIT WITH SMALL AMOUNT OF THICK, YELLOW, SPUTUM PRODUCTION. IV INFUSING WNL IN RIGHT ARM. ASSESSMENT COMPLETED. PT SATTING 95% ON RA. CALL LIGHT WITHIN REACH.
--- NOTE | 2018-04-21 09:34 | NUR ---
PT ATE 100% OF BREAKFAST. CURRENTLY LYING IN BED, EYES CLOSED, RESP EVEN AND UNLABORED. CALL LIGHT WITHIN REACH.
--- NOTE | 2018-04-21 12:04 | NUR ---
PT INDEPENDENT IN ROOM. SITTING UP EATING LUNCH. IV WNL. DENIES NEEDS OR CONCERNS AT THIS TIME. CALL LIGHT WITHIN REACH.
--- NOTE | 2018-04-21 15:22 | NUR ---
PT RESTING IN BED. EYES CLOSED, RESP EVEN AND UNLABORED.
--- NOTE | 2018-04-21 18:03 | NUR ---
PT SITTING UP AT EDGE OF BED EATING DINNER. DENIES NEEDS OR CONCERNS. CALL LIGHT WITHIN REACH.
--- NOTE | 2018-04-21 19:30 | NUR ---
REPORT RECEIVED, PT RESTING IN BED WATCHING TV, NO REQUESTS AT THIS TIME, CALL LIGHT WITHIN REACH, IV FLUIDS INFUSING PER EMARN. FALL PRECAUTIONS IN PLACE.
--- NOTE | 2018-04-21 21:00 | NUR ---
PT RESTING IN BED WATCHING TV, EVENING MEDS ADMINISTERED, VSS, ASSESSMENT COMPLETE, PT ON RA, DENIES SOB/CP, DENIES PAIN, DENIES NAUSEA, PT ENCOURAGED TO COUGH/ DEEP BREATH AND USE I.S. PT AGREEABLE TO POC, ASKING QUESTIONS, EDUCATION PROVIDED REGARDING MEDICATIONS AND DISEASE PROCESS. PT'S LS NOTED TO HAVE WHEEZES THROUGHOUT RIGHT SIDE AND FAINT WHEEZES NOTED IN PT'S LEFT LOWER LOBE, PT DOES HAVE OCCASIONAL COUGH, NO PRODUCTION NOTED AT THIS TIME. IV FLUIDS INFUSING PER EMAR WNL. PT GIVEN COFFEE AND SOFIA CRACKERS PER PT'S REQUEST. NO FURTHER NEEDS AT THIS TIME, CALL LIGHT WITHIN REACH, FALL PRECAUTIONS IN PLACE.
--- NOTE | 2018-04-21 23:49 | NUR ---
PT RESTING IN BED WATCHING TV, DENIES ANY NEEDS AT THIS TIME, ON RA, NO C/O SOB/CP, IV FLUIDS INFUSING PER EMAR WNL. CALL LIGHT WITHIN REACH, FALL PRECAUTIONS IN PLACE.
--- NOTE | 2018-04-22 02:00 | NUR ---
PT RESTING IN BED WATCHING TV, LS CLEAR, VERY FAINT CRACKLE NOTED IN PT'S LEFT LOWER LOBE, PT STATES THAT HE HAS BEEN COUGHING FREQUENTLY AND HAS BEEN SPITTING UP WHITE SPUTUM THE LAST COUPLE HOURS, PT ENCOURAGED TO CDB/ AND TO USE IS/ACOPELLA, PT ON RA, NO C/O SOB/CP, IV FLUIDS INFUSING PER EMAR, NO REQUESTS AT THIS TIME, CALL LIGHT WITHIN REACH, FALL PRECAUTIONS IN PLACE.
--- NOTE | 2018-04-22 04:30 | NUR ---
PT GIVEN NEB TX PER PT'S REQUEST, PT TOLERATED WELL, NO C/O SOB/CP, PT CONTINUES TO HAVE OCCASIONAL PRODUCTIVE COUGH, CDB ENCOURAGED, IS/ACOPELLA ENCOURAGED WELL, PT'S LS WHEEZES THROUGHOUT. NO FURTHER REQUESTS AT THIS TIME, CALL LIGHT WITHIN REACH, FALL PRECAUTIONS IN PLACE. IV FLUIDS INFUSING PER EMAR WNL.
--- NOTE | 2018-04-22 05:17 | NUR ---
PT AOX4, APPROPRIATE, INDEPENDENT IN ROOM, IV FLUIDS/ABX INFUSED PER EMAR WNL, SCHEDULED NEB TREATMENTS, ENCOURAGED COUGHING/DEEP BREATHING WELL IS/ACOPELLA USE. PT TOLERATING DIET, URINE OUTPUT QS, PT HAS HAD SEVERAL LOOSE BM'S TODAY. VSS, ON RA, O2 SAT 93-94%
--- NOTE | 2018-04-22 08:20 | NUR ---
PT SITTING UP AT EDGE OF BED EATING BREAKFAST. PT NOTED TO HAVE FREQUENT HARSH COUGH WITH SMALL TO MODERATE AMOUNT OF THICK YELLOW SPUTUM PRODUCTION. PT DENIES PAIN, NAUSEA, OR SOB. ALERT AND ORIENTED. IV INFUSING WNL. ASSESSMENT COMPLETED. PT INDEPENDENT IN ROOM. CALL LIGHT WITHIN REACH.
--- NOTE | 2018-04-22 09:00 | NUR ---
STATES HE WILL CONTACT HIS DAUGHTER TODAY AND SEE IF SHE WILL BE ABLE TO PICK HIM UP OR SOMETHING AND WANTS TO STAY WITH HER UNTIL HE CAN GET A BUS TO [facility] WHERE HE WILL STAY WITH HIS BROTHER UNTIL HE IS RECOVERED.
--- NOTE | 2018-04-22 11:20 | NUR ---
PT AMB INDEPENDENTLY IN ROOM. RESTING IN BED OFF AND ON STATES "I LIKE TO STAY UP AT NIGHT TO WATCH THE GOOD SHOWS AND THEN JUST SLEEP DURING THE DAY." DENIES PAIN. PT NOTED TO BE COUGHING INCESSENTLY. NOTIFIED DR. GREY. RECIEVED ORDER FOR KARLO MORALES. PT SITTING UP IN BED CALL LIGHT WITHIN REACH.
--- NOTE | 2018-04-22 13:20 | NUR ---
PT RESTING IN BED, EYES CLOSED, RESP EVEN AND UNLABORED.
--- NOTE | 2018-04-22 16:22 | NUR ---
PT C/O SEVERE HEADACHE. MEDICATED WITH ONE TIME DOSE MOTRIN. PT INDEPENDENT IN ROOM. CALL LIGHT WITHIN REACH.
--- NOTE | 2018-04-22 18:32 | NUR ---
PT SLEEPING SOUNDLY IN BED, EYES CLOSED, RESP EVEN AND UNLABORED.
--- NOTE | 2018-04-22 19:03 | NUR ---
RECIEVED CHANGE OF SHIFT REPORT FROM VIVIANA JONES. LAURENCE LAYING AWAKE IN BED. WHITE BOARD UPDATED. CALL LIGHT WITHIN REACH.
--- NOTE | 2018-04-22 21:45 | NUR ---
ASSESSMENT COMPLETE. MEDICATION ADMINSTRATION COMPLETE PER ORDER. IV FLUIDS INFUSING PER MAR ORDER. PATIENT DENIES PAIN, SOB, OR DIFFICULTY BREATHING. IV ACCESSED TO BE PATENT. ACTIVE BT. PATIENT DENIES NUMBNESS AND TINGLING IN EXTREMITIES. CALL LIGHT WITHIN REACH. NO MORE NEEDS AT THIS TIME.
--- NOTE | 2018-04-22 22:26 | NUR ---
ROUNDED ON PATIENT. PATIENT REPORTS "9/10" PAIN IN LOWER BACK, PATIENT REPORTS BACK PAIN IS FROM AN "OLD INJURY". UPDATED DR. GREY OF PATIENT'S REPORTED "9/10" PAIN. OFFERED PATIENT WARM BLANKET PATIENT DENIED. BROUGHT PATIENT GRAMHAM CRACKERS PER PATIENT REQUEST. CALL LIGHT WITHIN REACH. NO MORE NEEDS AT THIS TIME.
--- NOTE | 2018-04-22 23:31 | NUR ---
ROUNDED ON PATIENT LAYING IN BED, WATCHING TV. SCHEDULED MEDICATION ADMINISTRATION ADMINISTERED PER MAR ORDER. PATIENT REPORTS PAIN A "9/10" IN LOWER BACK, PATIENT REPORTS PAIN IS FROM A PREVIOUS INJURY. CALL LIGHT WITHIN REACH. NO MORE NEEDS AT THIS TIME.
--- NOTE | 2018-04-23 01:54 | NUR ---
rounded on patient, patient resting awake in bed watching tv. patient denies pain. urinal emptied. notifed another nursing staff to provided patient with joanne crackers per patient request. fresh coffee brought to patient. call light within reach. no more needs at this time.
--- NOTE | 2018-04-23 03:25 | NUR ---
ASSESSMENT COMPLETE. PATIENT DENIES CHEST PAIN, SOB, OR DIFFICULY BREATHING. NEW BACK OF IV FLUIDS HUNG AND INFUSING PER MAR ORDER. PATIENT REPORTS DISCOMFORT IN LEFT SAMUELS MUSCLE, PATIENT REPORTED DISCOMFORT BEGAN AFTER LAYING ON LEFT SIDE IN BED. BROUGHT PATIENT FRESH CUP OF COFFEE PER PATIENT REQUEST. ENCOURAGED PATIENT TO USE IS AND ACAPELLA, PATIENT EXPRESSES USING DEVICE. CALL LIGHT WITHIN REACH. NO MORE NEEDS AT THIS TIME.
--- NOTE | 2018-04-23 05:41 | NUR ---
REGULAR DIET. ROOM AIR. IV FLUIDS INFUSING PER MAY ORDER. IS AND ACAPELLA AT BEDSIDE. SCHEDULED PAIN MEDICATION THIS SHIFT. INDEPENDENT IN ROOM. PATIENT SLEPT ON AND OFF THROUGHOUT SHIFT.
--- NOTE | 2018-04-23 07:20 | NUR ---
REPORT RECEIVED FROM UGO JONES. PATIENT IS RESTING IN BED ON RA. HIS BED IS IN THE LOW POSTION WITH RAILS UP AND CALL LIGHT REMAINS WITHIN REACH. HE DENIES ANY QUESTIONS OR CONCERNS CURRENTLY.
--- NOTE | 2018-04-23 08:23 | NUR ---
PATIENT IS SITTING UP TO THE SIDE OF THE BED EATING BREAKFAST. HE DENIES ANY SOB WHILE AT REST BUT STATES THAT HE DOES HAVE SOME WITH AMBULATION. HE IS ALERT AND ORIENTED AND REMAINS ON RA.
--- NOTE | 2018-04-23 11:15 | NUR ---
PATIENT RESTING WITH EYES CLOSED ON HIS LEFT LATERAL SIDE. PATIENT'S RESPIRATIONS EVEN UNLABORED NO S/S OF DISTRESS CURRENTLY.
--- NOTE | 2018-04-23 12:30 | NUR ---
TALKED WITH PT ABOUT HIS CONVERSATION WITH HIS DAUGHTER AND HE STATES THAT HE CAN'T STAY WITH HIS DAUGHTER BECAUSE SHE LIVES IN LOW INCOME HOUSING AND THEY AREN'T ALLOWED TO HAVE OVERNIGHT GUESTS OR THEY WILL LOSE THEIR HOUSING. WE THEN DISCUSSED WHAT HIS OTHER OPTIONS WERE AND HE STATED HE COULD GO STAY WITH HIS BROTHER BUT HE HAS NO MONEY FOR A TICKET THERE. OTHERWISE HE WILL HAVE TO RETURN TO STAYING AT THE [facility] STATION DURING THE NIGHT AND BEING OUT AND ABOUT DURING THE DAY. TOLD HIM I WOULD LOOK INTO SOME THINGS AND COME BACK AND TALK WITH HIM.
--- NOTE | 2018-04-23 13:00 | NUR ---
PATIENT IS ASLEEP AGAIN AFTER FINISHING 50% OF HIS LUNCH. NO PAIN OR NAUSEA NOTED AT THIS TIME
--- NOTE | 2018-04-23 14:30 | NUR ---
PATIENT REFUSED A SHOWER FOR THIS RN AT THIS TIME, HE ALSO REFUSED FOR HIS LINEN TO BE CHANGED. SOFY LUEVANO HAS ALSO ATTEMPTED TO SHOWER HIM WITH THE SAME REFUSAL FROM THE PATIENT. HE STATES THAT HE DOESN'T FEEL GOOD ENOUGH AND WANTS TO NOT BE ASKED AGAIN.
--- NOTE | 2018-04-23 14:36 | NUR ---
PT HAS DECLINED SHOWER MULTIPLE TIMES. PT STATES HE WILL BE "KNOCKED OUT IF HE TAKES IT".
--- NOTE | 2018-04-23 14:58 | NUR ---
In to visit with patient about where he would like to go when he leaves here. Pt [facility] to go to [facility] is sold out tomorrow and only goes to [place]. We are concerned pt. would not be able to walk to [place] to catch ride to [place]. Pt would prefer to stay in [place], discussed with CHWAra, and she suggested independent living at [facility] and pt would qualify. Pt is agreeable, Christin called and Claribel Barron will visit tomorrow at 0900 for assessment tomorrow.
--- NOTE | 2018-04-23 17:25 | NUR ---
PATIENT REQUESTED HOT COFFEE AT THIS TIME, PO AUGMENTIN GIVEN AT THIS TIME.
--- NOTE | 2018-04-23 18:25 | NUR ---
THIS PATIENT HAS CONTINUED TO BE ON RA TODAY WITH NO C/O SOB. HE OCCASIONALLY HAS A COUGH WITH GREENISH SPUTUM PRODUCTION BUT HAS NOT REQUIED MEDICATION SUCH TESSALON PEARLS FOR COVERAGE. HE IS ALERT AND ORIENTED AND STEADY ON HIS FEET. PATIENTS IV WAS SALINE LOCKED AND ANTIBIOTICS AND STEROIDS WERE CHANGED TO PO.
--- NOTE | 2018-04-23 19:12 | NUR ---
RECIEVED CHANGE OF SHIFT REPORT FROM LUCIAN JONES. PATIENT LAYING AWAKE IN BED, WATCHING TV. WHITE BOARD UPDATED. CALL LIGHT WITHIN REACH. NO MORE NEEDS AT THIS TIME.
--- NOTE | 2018-04-23 19:30 | NUR ---
CHARGE ROUNIDNG DONE WITH DAY SHIFT CHARGE AND FER RN. PATIENT RESTING IN BED, CALL LIGHT IN REACH. NO NEEDS AT THIS TIME.
--- NOTE | 2018-04-23 22:10 | NUR ---
ASSESSMENT COMPLETE. PATIENT DENIES PAIN, SOB, OR DIFFICULTY BREATHING. IV ASSESSED TO BE PATENT, WNL. PATIENT DENIES N/T. PATIENT REPORTS PASSING FLATUS. ACAPELLA AND INCENTIVE SPIROMETER AT BEDSIDE, PATIENT EXPRESSES THAT HE USES SUCH DEVICES. FRESH COFFEE BROUGHT TO PATIENT. CALL LIGHT WITHIN REACH. NO MORE NEEDS AT THIS TIME.
[2018-04-23] MEDS ORDERED: AMOX TR-K CLV1 EAC1 PO (22:25)
[2018-04-23] MEDS ORDERED: PREDNISONE20 MG PO (22:28)
--- NOTE | 2018-04-23 23:55 | NUR ---
ROUNDED ON PATIENT. PATIENT REPORTED "9/10 HEADACHE", DISCUSSED WITH CHARGE NURSE FER OPTIONS FOR PAIN MANAGEMENT, NIO FOR TYLENOL PLACED, SINCE PATIENT HAS HEP C, ORDER HAS BEEN D/C'd. THIS RN OFFERED PATIENT WARM BLANKET, PATIENT DECLINED. CALL LIGHT WITHIN REACH. NO MORE NEEDS AT THIS TIME.
--- NOTE | 2018-04-24 | NUR ---
updated dr. suggs about patient's reported "9/10" "headache" and patient requesting motrin.
--- NOTE | 2018-04-24 00:36 | NUR ---
rounded on patient to adminster scheduled pain medication. patient reports pain as a "11/10" "headache". call light within reach. no more needs at this time.
--- NOTE | 2018-04-24 04:31 | NUR ---
ASSESSMENT COMPLETE. PATIENT DENIES HAVING PAIN OR DIFFICULTY BREATHING. PATIENT REPORTS HAVING SLIGHT SOB DURING AND AFTER AMBULATION. EXPIRATORY WHEEZE NOTED IN RIGHT LUNG, RESPIRATORY THERAPIST PROVIDED BREATHING TREATMENT BEFORE ASSESSMENT WAS CONDUCTED. PROVIDED EDUCATION TO PATIENT TO USE URINAL OR HAT IN TOLIET FOR ACCURATE URINARY OUTPUT, PATIENT EXPRESSED UNDERSTANDING. OBTAINED PATIENT BREAKFAST ORDER. IV ASSESSED TO BE PATENT, WNL. MILK PROVIDED PER PATIENT REQUEST. CALL LIGHT WITHIN REACH. NO MORE NEEDS AT THIS TIME. IS AND ACAPELLA AT BEDSIDE.
--- NOTE | 2018-04-24 06:58 | NUR ---
rounded on patient resting in bed with respiratory rate is even and unlabored. call light within reach.
--- NOTE | 2018-04-24 07:30 | NUR ---
PATIENT REPORT RECEIVED FROM UGO JONES, PATIENT IS RESTING WITH EYES CLOSED. RESTED WELL THROUGH THE NIGHT AND REMAINS ON RA.
--- NOTE | 2018-04-24 09:05 | NUR ---
PATIENT AM MEDICAION GIVEN AT THIS TIME, PATIENT REQUESTED TO JUST SLEEP THIS AM INSTEAD OF GETTING UP TO AMBULATE OR SHOWER. HE REMAINS ON RA AND HAS NO C/O SOB.
--- NOTE | 2018-04-24 09:56 | NUR ---
PATIENT RESTING IN BED. VITALS SIGNS AND I&O DONE. CALL LIGHT WITHIN REACH. NO OTHER NEEDS AT THIS TIME
--- NOTE | 2018-04-24 13:37 | NUR ---
PATIENT RESTING IN BED. VITAL SIGNS AND I&O DONE/ CALL LIGHT WITHIN REACH. NO OTHER NEEDS AT THIS TIME
--- NOTE | 2018-04-24 16:08 | NUR ---
CALLED AND SPOKE WITH [facility] AND SHE STATED THEY DID NOT COME EVALUATE HIM BECAUSE ONE OF THE CHW CALLED AND SAID HE WAS NOT INTERESTED IN COMING THERE. I SAID NO HE IS, HE NEEDS A PLACE TO GO. SHE THEN ASKED ABOUT PAYER SOURCE AND SAID HE WOULD HAVE TO EITHER PAY PRIVATELY OR HE WOULD HAVE TO HAVE MEDICAID APPROVAL FOR HOUSING. RECOMMENDED I CALL [facility]. I CALLED [facility] AND THEY STATED THAT HE DOES NOT QUALIFY FOR THEIR SERVICES, HE IS FAR TO INDEPENDENT FOR THEIR SERVICES.
--- NOTE | 2018-04-24 16:38 | NUR ---
PATIENT RESTING IN BED. PATIENT REFUSED SHOWER TODAY. CALL LIGHT WITHIN REACH. NO OTHER NEEDS AT THIS TIME
--- NOTE | 2018-04-24 16:49 | NUR ---
PATIENT AWAKE AND WATCHING TV, CONTINUES TO BE ON RA WITH NO C/O SOB. STILL HAS A COUGH WITH LESS SPUTUM PRODUCTION THAN PREVIOUSLY. PATIENT DENIES ANY QUESTIONS OR CONCERNS AT THIS TIME.
--- NOTE | 2018-04-24 17:30 | NUR ---
PATIENT IN BED WATCHING TV. VITAL SIGNS AND I&O DONE. CALL [facility] WITHIN REACH. NO OTHER NEEDS AT THIS TIME
--- NOTE | 2018-04-24 17:46 | NUR ---
PATIENT HAD A GOOD DAY WITHOUT ANY COMPLAINTS OF SOB OR RESPIRATORY DISTRESS. HE CONTINUES TO REMAIN ON RA AND IS COUGHING LESS WITH VERY LITTLE SPUTUM PRODUCTION. HE HAD NO C/O PAIN TODAY AND SLEPT MOST OF THE DAY. HE CONTINUES TO BE ON ORAL ANTIBIOTICS AND STEROIDS. HE WILL D/C TO [facility] AFTER EVALUATION BY THE FACILITY.
--- NOTE | 2018-04-24 19:25 | NUR ---
SHIFT REPORT RECEIVED, PATIENT APPEARS TO BE SLEEPING. RR 18. CALL LIGHT IN REACH.
--- NOTE | 2018-04-24 19:28 | NUR ---
CHARGE NURSE REPORT RECEIVED FROM MAVIS FISH WATCHING TV, NO NEEDS AT THIS TIME.
--- NOTE | 2018-04-24 21:15 | NUR ---
EVENING MEDS GIVEN PER ORDER, EDUCATION PROVIDED VERBALLY. PATIENT WAS ABLE TO REPEAT BACK THIS INFORMATION ON NEW MED PRESCRIBED, LOPRESSOR. PATIENT VS WNL. PATIENT REPORTS HAVE LARGE AMOUNT OF URINE OUTPUT BUT HAS NOT BEEN SAVING IT TO MEASURE. ALSO REPORTS TWO BOWEL MOVEMENTS, PATIENT TOLERATING ROOM AIR, LUNGS ARE CLEAR EXCEPT SLIGHT EXP WHEEZE IN RUL. PATIENT DENIES ANY PAIN AND IS AAOX4. PROVIDED WITH A SNACK PER REQUEST. NO OTHER NEEDS.
--- NOTE | 2018-04-24 23:00 | NUR ---
PATIENT REQUEST MILKWHICH WAS GIVEN TO HIM. NO OTHER NEEDS AT THIS TIME.
--- NOTE | 2018-04-25 04:10 | NUR ---
PATIENT COUGHING INCREASED THIS MORNING. TESSLON PEARLS OFFERED. PATIENT DENIED NEED. REPORTS A SMALL AMOUNT OF SPUTUM. COUGH IS CONGESTED, LUNGS ARE CLEAR AT THIS TIME. UPPER AIRWAY CONGESTION.
--- NOTE | 2018-04-25 04:15 | NUR ---
PATIENT REQUEST A TESSLON AGUILAR AT THIS TIME WHICH WAS PROVIDED. DISCUSSED DISCHARGE PLAN WITH PATIENT AND HE REPORTS HE WOULD LIKE TO SHOWER AND SHAVE THIS MORNING BEFORE BREAKFAST. PROVIDED SUPPLIES.
--- NOTE | 2018-04-25 06:43 | NUR ---
PATIENT SLEPT WELL THIS SHIFT. NEBS PER ORDER. ROOM AIR. CONGESTED COUGH. NO PAIN. LUNGS CLEAR WITH UPPER AIRWAY CONGESTED. PATIENT SHOWERS THIS MORNING AND GETTING READY FOR DISCHARGE. IV SL. REGULAR DIET. INDEPENDENT IN THE ROOM.
--- NOTE | 2018-04-25 08:42 | NUR ---
patient iv dc'd in the right wrist tip intact, patient given d/c instructions questions answered and pharmacy in to speak with the patient also.
== END 2018-04-25 08:55 | disposition home or self-care (01) | DRG 194 ==
LOC: ED 09:40 → EDBD 09:41 → MS 11:35 → EDBD 04-25 08:55 → MS 04-25 08:55
PROVIDERS: ADMIT Internal Medicine
DX: J13 Pneumonia due to Streptococcus pneumoniae (principal); J44.1 Chronic obstructive pulmonary disease with (acute) exacerbation; J44.0 Chronic obstructive pulmonary disease with (acute) lower respiratory infection; I25.10 Atherosclerotic heart disease of native coronary artery without angina pectoris; N40.0 Benign prostatic hyperplasia without lower urinary tract symptoms; F17.210 Nicotine dependence, cigarettes, uncomplicated; B18.2 Chronic viral hepatitis C; R91.8 Other nonspecific abnormal finding of lung field; Z59.0 Homelessness; Z79.02 Long term (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 antithrombotics/antiplatelets; Z79.82 Long term (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 aspirin; Z79.51 Long term (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 inhaled steroids; Z79.899 Other long term (current) drug therapy
CPT/HCPCS: 36415; 71045; 80053; 83605; 83735; 83880; 85025; 87070; 87205; 87449; 87502; 87899; 94640; 94667; 94668; 96365; 96368; 96375; 99284-25; 99406; J0456; J0696; J1650; J2930; J3475; J7050; J7120; J7512

== ENCOUNTER 2018-05-02 05:20 | Observation (INO) | payer OTHER ==
[~2018-05-02] VITALS: Ht 180.3 cm; Wt 69.5 kg
[~2018-05-02 05:20] MED LIST changes: +FLOMAX0.4 MG PO; +ISOSORBIDE DINI30 MG PO; +METOPROLOL SUCC25 MG PO; +PROAIR HFA8.5 GM INH; +QVAR REDIHALE10.6 G1 IH
--- NOTE | 2018-05-02 07:42 | NUR ---
RECEIVED REPORT FROM ED NURSE OVER PHONE.
--- NOTE | 2018-05-02 08:00 | NUR ---
PT ARRIVEDTO FLOOR VIA STRETCHER. AMBULATED TO BED WITH NO ASSISTANCE. PT WITH LABORED BREATHING. ON RA, CPOX PLACED, SATURATION AT 92%. LUNGS WHITH WHEEZING, HEART SOUNDS NORMAL. BOWEL TONES ACIVE, BM TODAY. DENIES PAIN. ORDERED AND ATE 90% OF BREAKFAST. ORIENTED TO ROOM, CALL LIGHT IN REACH. DENIES FURTHER NEEDS.
--- NOTE | 2018-05-02 09:55 | NUR ---
MED REC COMPLETE
--- NOTE | 2018-05-02 11:54 | NUR ---
RT IN FOR BREATHING TREATMENT. PT UP TO SIDE OF BED FOR LUNCH.
--- NOTE | 2018-05-02 14:00 | NUR ---
PT RESTING IN BED WIT HEYES CLOSED, CPOX IN PLACE. SATURATION AND PULSE WNL. RESPIRAITONS 20. PT WITH NONPRODUCTIVE COUGH. INCENTIVE SPEROMETER EDUCATION AND USE. CALL LIGHT IN REACH. DENIES FURTHER NEEDS.
--- NOTE | 2018-05-02 16:00 | NUR ---
PT IN BED WATCHIGN TV. RESP 20 PER MIN. CPOX IN PLACE. SATURATION 94% ON RA. CALL LIGHT IN REACH. DENIES NEEDS.
--- NOTE | 2018-05-02 18:00 | NUR ---
PT WATCHING TV. DNEIS NEEDS. CALL LIGHT IN REACH.
--- NOTE | 2018-05-02 19:37 | NUR ---
REPORT RECEIVED, PT RESTING IN BED, ON RA, O2 SAT 94%, PRODUCTIVE COUGH NOTED, SPUTUM CLEAR, NO REQUESTS FROM PT AT THIS TIME, CALL LIGHT WITHIN REACH, FALL PRECAUTIONS IN PLACE.
--- NOTE | 2018-05-02 21:56 | NUR ---
VITALS AND I&OS DONE AND CHARTED. BEDSIDE TABLE AND CALL LIGHT IN REACH.
--- NOTE | 2018-05-02 22:00 | NUR ---
EVENING MEDS ADMINISTERED, PT SITTING AT BEDSIDE RECEIVING A PRN BREATHING TREATMENT FROM RT, PT STATES THAT HE FELT SLIGHTLY SOB BEFORE RECEIVING PRN BREATHING TREATMENT, O2 SAT 94%, ON RA, RR 20, PT CONTINUES TO HAVE FREQUENT PRODUCTIVE COUGH, SPUTUM CLEAR, ASSESSMENT COMPLETE, IV FLUSHED, SL, PT DENIES ANY REQUESTS AT THIS TIME, VSS, CALL LIGHT WITHIN REACH, FALL PRECAUTIONS IN PLACE.
--- NOTE | 2018-05-03 00:28 | NUR ---
PT RESTING IN BED, NO NEEDS AT THIS TIME, O2 SAT 95% ON RA, CALL LIGHT WITHIN REACH, FALL PRECAUTIONS IN PLACE.
--- NOTE | 2018-05-03 02:00 | NUR ---
CALL LIGHT ANSWERED, PT REQUESTING PRN NEB TREATMENT FROM RT, RT CALLED, PT'S O2 SAT 94% ON RA, FREQUENT COUGH CONTINUES, PRODUCTIVE, CLEAR/YELLOW. NO FURTHER REQUESTS AT THIS TIME, CALL LIGHT WITHIN REACH.
--- NOTE | 2018-05-03 03:00 | NUR ---
PT RESTING IN BED, EYES CLOSED, BREATHS EVEN, UNLABORED, ON RA, O2 SAT > 95%, CALL LIGHT WITHIN REACH, FALL PRECAUTIONS IN PLACE.
--- NOTE | 2018-05-03 04:32 | NUR ---
PT AOX4 THIS SHIFT, INDEPENDENT IN ROOM, ON CPOX, O2 SAT 94% ON RA, PT RECIEVED SEVERAL PRN AND SCHEDULED NEBS, PT CONTINUES TO HAVE FREQUENT PRODUCTIVE COUGH, SPUTUM CLEAR, CDB ENCOURAGED, IS ENCOURAGED. PT'S VSS, AFEBRILE, IV SL,
--- NOTE | 2018-05-03 06:15 | NUR ---
PT CALLED REQUESTING COFFEE. HE DENIES FURTHER NEEDS, PRIMARY RN PAM IS NOW IN ROOM WITH PT.
--- NOTE | 2018-05-03 06:32 | NUR ---
PT RESTING IN BED, AWAKE, VSS, AFEBRILE, PT ENCOURAGED TO CDB, NO C/O SOB/CP, ON RA, O2 SAT 93-95%, CALL LIGHT WITHIN REACH, FALL PRECAUTIONS IN PLACE.
--- NOTE | 2018-05-03 07:30 | NUR ---
REPORT RECEIVED FROM LEAD BUSINESS ANALYST RN. PT IN BED WITH COFFEE. CPOX IN PLACE, O2 94% ON RA. RESPIRAITONS 18. PT REPORTS COUGH AND BREATHING HAVE IMPROVED TODAY. CALL LIGHT IN REACH. DENIES FURTHER NEEDS.
--- NOTE | 2018-05-03 07:53 | EKG ---
[facility] [address] [place] [address] Signed Sinus rhythm with frequent premature ventricular complexes Otherwise normal ECG When compared with ECG of 22-AUG-2017 13:23, premature ventricular complexes are now present Confirmed by OMAR SOTO MD ([id number]) on 05/03/2018 7:53:14 AM Electronically Signed By: OMAR SOTO MD 05/03/18 0753 PATIENT NAME: FRANKMAITE EJ Electrocardiogram DATE OF : 55 PHYSICIAN: OMAR SOTO MD REPORT #: [id number] REPORT IS CONFIDENTIAL AND NOT TO BE RELEASED WITHOUT AUTHORIZATION
--- NOTE | 2018-05-03 09:55 | NUR ---
ASSESSMENT COMPLETED. PT IN BED RESTING. CPOX ON SATS AT 94%. HEART RATE FROM 90-100 AT REST. DENEIS SOB. EX AND IN WHEEZING HEARD. NO CRACKLES. CALL LIGHT IN REACH. DENIES NEEDS.
--- NOTE | 2018-05-03 11:40 | NUR ---
DR SOTO IN TO ROUND. PLAN OF CARE DISCUSSED. QUESTIONS AND CONCERNS ADRESSED. NEW ORDERS RECEIVED.
--- NOTE | 2018-05-03 16:00 | NUR ---
RT IN FOR BREATHING TREATMENT.
--- NOTE | 2018-05-03 17:13 | NUR ---
PT WITH GOOD DAY. RESPIRAIOTNS 16-20. SATURATIONS WNL. NEB TREATMENTS. LUNGS WITH SOME WHEEZING. AAO X4.
--- NOTE | 2018-05-03 19:15 | NUR ---
I ASKED HIM HE WANTED TO TAKE A SHOWER TODAY AND HE REFUSED. I ALSO I ASKED HIM YESTERDAY AND HE REFUSED. TO TIRED. BROUGHT HIM COFFEE AND PEANUT BUTTER AND SOFIA CRACKERS.
--- NOTE | 2018-05-03 19:22 | NUR ---
REPORT RECEIVED, PT RESTING IN BED, ON RA, NO C/O SOB/CP, NO REQUESTS AT THIS TIME, CALL LIGHT WITHIN REACH, FALL PRECAUTIONS IN PLACE.
--- NOTE | 2018-05-03 20:25 | NUR ---
IN ROOM TO ADMIN EVENING MEDS, PT AOX4, APPROPRIATE, VSS, PT C/O SOME SLIGHT SOB RELATED TO HIS PERSISTANT COUGH, PT'S O2 SAT 94-96% ON RA, RR 19, PT'S LS CLEAR UPPERS SOME COURSENESS NOTED IN BILATERAL BASES. HEART SOUNDS REGULAR, BT ACTIVE, ASSESSMENT COMPLETE, PT GIVEN MILK AND COFFEE PER PT'S REQUEST. NO FURTHER REQUESTS AT THIS TIME, CALL LIGHT WITHIN REACH, FALL PRECAUTIONS IN PLACE. IV SL, FLUSHES WELL.
--- NOTE | 2018-05-03 23:01 | NUR ---
PT RESTING IN BED, NO REQUESTS AT THIS TIME, CALL LIGHT WITHIN REACH, FALL PRECAUTIONS IN PLACE, NO C/O SOB/CP, ON RA.
--- NOTE | 2018-05-04 00:41 | NUR ---
PT RESTING IN BED, EYES CLOSED, BREATHS EVEN, UNLABORED, ON RA, NO REQUESTS AT THIS TIME, CALL LIGHT WITHIN REACH, FALL PRECAUTIONS IN PLACE.
--- NOTE | 2018-05-04 02:15 | NUR ---
PT RESTING IN BED, NO C/O SOB/CP, ON RA, ASSESSMENT COMPLETE, NO REQUESTS AT THIS TIME, CALL LIGHT WITHIN REACH, FALL PRECAUTIONS IN PLACE.
--- NOTE | 2018-05-04 04:30 | NUR ---
PT RESTING IN BED, EYES CLOSED, BREATHS EVEN, UNLABORED, NO REQUESTS AT THIS TIME, CALL LIGHT WITHIN REACH, FALL PRECAUTIONS IN PLACE. ON RA, NO C/O SOB/CP.
--- NOTE | 2018-05-04 04:57 | NUR ---
PT AOX4 THIS SHIFT, APPROPRIATE, PLEASANT, ON RA, VSS, PT SLEPT MOST OF SHIFT, PT CONTINUES TO HAVE PRODUCTIVE COUGH BUT HAS BEEN LESS PERSISTANT THIS NIGHT, PT INDEPENDENT IN ROOM, IV SL, FLUSHES WELL.
--- NOTE | 2018-05-04 06:16 | NUR ---
PT AOX4 THIS MORNING, RESTING IN BED, ON RA, NO C/O SOB/CP, VSS, O2 SAT 95%, PT GIVEN COFFEE AND SOFIA CRACKERS PER PT'S REQUEST. NO FURTHER REQUESTS AT THIS TIME, CALL LIGHT WITHIIN REACH. FALL PRECAUTIONS IN PLACE.
--- NOTE | 2018-05-04 07:05 | NUR ---
REPORT RECIEVED FROM KAREN OROZCO. PT AWAKE AND RESTING IN BED. PT DENIES SOB, PAIN AND NAUSEA. PT AWAITING BREAKFAST. NO REQUESTS OR COMPLAINTS AT THIS TIME. BED RAILS UP. CALL LIGHT WITHIN REACH.
--- NOTE | 2018-05-04 08:23 | NUR ---
MORNING ASSESSMENT AND MEDICATIONS DUE. THIS RN TO BEDSIDE. PT RESTING IN BED, FINISHED WITH BREAKFAST. ASSESSMENT DONE. MINIMAL EXPIRATORY WHEEZES NOTED IN UPPER LOBES OF LUNGS. PT DENIES SOB, OCCATIONAL COUGH NOTED. PT STATES "I FEEL MUCH BETTER." PT REQUESTS BREATHING TREATMENT, RT CALLED FOR MORNING TREATMENT. MEDICATIONS GIVEN. PT DEMONSTRATES USE OF INCENTIVE SPIROMATER FOR THIS RN, REACHES 2250. PT ENCOURAGED TO GET UP TO CHAIR. PT REFUESES AT THIS TIME STATING HE WANTS TO REST MORE. PT MOVING SELF AROUND ROOM AND SITS UP TO EDGE OF BED FREQUENTLY. NO ADDITIONAL REQUESTS OR COMPLAINTS AT THIS TIME. BED RAILS UP. CALL LIGHT WITHIN REACH.
[2018-05-04] MEDS ORDERED: DELTASONE20 MG PO (10:16)
--- NOTE | 2018-05-04 10:36 | NUR ---
THIS RN TO ROOM TO CHECK ON PT. PT ANTICIPATING DISCHARE. PT UP AND DRESSED. PAPER WORK IN PROCESS. PT STATES HE HAS NO ADDITIONAL REQUESTS OR COMPLAINTS AT THIS TIME.
--- NOTE | 2018-05-04 10:45 | NUR ---
PT READY FOR DISCHARGE. THIS RN TO ROOM. PT SITTING ON EDGE OF BED, DRESSED, DENIES SOB. DISCHARGE INSTRUCTIONS REVIEWED WITH PT. PT VERALIZES UNDERSTANDING AND STATES HIS QUESTIONS HAVE BEEN ANSWERED. COPD INFORMATION AND RED/YELLOW/GREEN ZONES REVIEWED WITH PT. PT DEMONSTARTES UNDERSTANDING STATING HE IS IN THE "GREEN" ZONE AT THIS TIME. PIV DC'D PER PROTOCOL. VITALS TAKEN. PT AWAITING RX FROM PHARMACY. TAXI TO BE CALLED ONCE RX IS RECEIVED.
--- NOTE | 2018-05-04 11:15 | NUR ---
RX RECEIVED, PT VERBALIZES UNDERSTANDING OF RX. TAXI RIDE CALLED. PT WHEELED TO FRONT WITH BELONGINGS. PT REFUSES TO TAKE COPD PACKET WITH HIM BUT IS WILLING TO TAKE RED/YELLOW/GREEN COPD FUNCTION MAGNET WITH HIM. NO FURTHER REQUESTS, COMPLAINTS, OR QUESTIONS.
== END 2018-05-04 11:15 | disposition home or self-care (01) ==
LOC: ED 05:20 → MS 05:21
PROVIDERS: ADMIT Internal Medicine
DX: J44.1 Chronic obstructive pulmonary disease with (acute) exacerbation (principal); F17.200 Nicotine dependence, unspecified, uncomplicated; Z59.0 Homelessness; J98.01 Acute bronchospasm; I25.2 Old myocardial infarction; I25.10 Atherosclerotic heart disease of native coronary artery without angina pectoris; B18.2 Chronic viral hepatitis C; J32.9 Chronic sinusitis, unspecified; N40.0 Benign prostatic hyperplasia without lower urinary tract symptoms; E78.5 Hyperlipidemia, unspecified; R73.03 Prediabetes; X31.XXXA Exposure to excessive natural cold, initial encounter; Z79.02 Long term (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 antithrombotics/antiplatelets; Z79.82 Long term (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 aspirin; Z79.51 Long term (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 inhaled steroids; Z79.899 Other long term (current) drug therapy
CPT/HCPCS: 71045; 80053; 83735; 83880; 84484; 85025; 93005; 93010; 94640; 94645; 94762; 96374; 96376; 99285-25; 99406; G0378; J2930; J7512

== ENCOUNTER 2018-06-17 13:00 | Emergency (ER) | payer OTHER ==
[~2018-06-17] VITALS: Ht 180.3 cm; Wt 69.0 kg
--- OUTSIDE RECORDS SUMMARY | ~2018-06-17 | XMS | Clinical Summary ---
Demographics + + + | Address | [address] | | | [place] [address] | + + + | Home Phone | | + + + | Preferred Language | Unknown | + + + | Marital Status | | + + + | Bahai Affiliation | Unknown | + + + | Race | Unknown | + + + | Ethnic Group | Unknown | + + + Author + + + | Author | [facility] | + + + | Organization | [facility] | + + + | Address | Unknown | + + + | Phone | Unavailable | + + + Support + + +---------+ + | Name | Relationship | Address | Phone | + + +---------+ + | Julio Cesar Williamson | ECON | Unknown | | + + +---------+ + Care Team Providers + +------+ + | Care Automation Driver Name | Role | Phone | + +------+ + | Alyx Clemente MD | PP | Unavailable | + +------+ + Allergies Not on File Current Medications + + +--------+---------+------+------+-------+ | Prescription | Sig. | Disp. | Refills | Star | End | Statu | | | | | | t | Date | s | | | | | | Date | | | + + +--------+---------+------+------+-------+ | isosorbide | Take 30 mg by mouth | | | | | Activ | | mononitrate (IMDUR) | daily. | | | | | e | | 30 MG 24 hr tablet | | | | | | | + + +--------+---------+------+------+-------+ | clopidogrel | Take 75 mg by mouth | | | | | Activ | | (PLAVIX) 75 MG | daily. | | | | | e | | tablet | | | | | | | + + +--------+---------+------+------+-------+ | aspirin 81 MG | Take 81 mg by mouth | | | | | Activ | | tablet | daily. | | | | | e | + + +--------+---------+------+------+-------+ | beclomethasone | Inhale 1 puff into | | | | | Activ | | (QVAR) 40 MCG/ACT | the lungs 2 (two) | | | | | e | | inhaler | times daily. | | | | | | + + +--------+---------+------+------+-------+ | metoprolol | take 1 tablet by | | 0 | 01/1 | | Activ | | (TOPROL-XL) 25 MG 24 | mouth NIGHTLY FOR | | | 5/20 | | e | | hr tablet | HEART | | | 19 | | | + + +--------+---------+------+------+-------+ | VENTOLIN HFA 108 | | | 1 | 01/1 | | Activ | | (90 Base) MCG/ACT | | | | 5/20 | | e | | inhaler | | | | 19 | | | + + +--------+---------+------+------+-------+ | atorvastatin | Take 20 mg by mouth | | 0 | 01/1 | | Activ | | (LIPITOR) 20 MG | daily. | | | 5/20 | | e | | tablet | | | | 19 | | | + + +--------+---------+------+------+-------+ | fluticasone | instill 2 sprays | | 1 | 01/1 | | Activ | | (FLONASE) 50 MCG/ACT | into each nostril at | | | 5/20 | | e | | nasal | bedtime | | | 19 | | | + + +--------+---------+------+------+-------+ | | | | 0 | 01/1 | | Activ | | ipratropium-albutero | | | | 5/20 | | e | | l (DUO-NEB) 0.5-2.5 | | | | 19 | | | | mg/3mL | | | | | | | + + +--------+---------+------+------+-------+ | SEREVENT DISKUS 50 | | | 1 | 01/1 | | Activ | | MCG/DOSE diskus | | | | 5/20 | | e | | inhaler | | | | 19 | | | + + +--------+---------+------+------+-------+ | SPIRIVA HANDIHALER | Inhale 18 mcg into | | 0 | 01/1 | | Activ | | 18 MCG inhalation | the lungs daily. | | | 5/20 | | e | | capsule | | | | 19 | | | + + +--------+---------+------+------+-------+ | tamsulosin | take 2 capsules by | | 0 | 01/1 | | Activ | | (FLOMAX) 0.4 MG | mouth once daily FOR | | | 5/20 | | e | | capsule | ENLARGED PROSTATE | | | 19 | | | + + +--------+---------+------+------+-------+ | | Take 3 tablets by | 252 | 0 | 02/ | 05/0 | Activ | | Glecaprevir-Pibrenta | mouth daily for 84 | tablet | | 05/01 | 09/28 | e | | svir (MAVYRET) | days. | | | 19 | 19 | | | 100-40 MG TABS | | | | | | | + + +--------+---------+------+------+-------+ Active Problems + + + | Problem | Noted Date | + + + | Coronary artery disease involving wainwright coronary artery of | 09/05/2017 | | wainwright heart with angina pectoris (HCC) | | + + + | Substance abuse (HCC) | 09/05/2017 | + + + | Other emphysema (HCC) | 09/05/2017 | + + + Encounters +--------+ + + + + | Date | Type | Specialty | Care Team | Description | +--------+ + + + + | 06/14/ | Telephone | | Izabella Garvey, | Other (Patient | | 2018 | | | BRAND STRATEGY MANAGER | called to update | | | | | | delivery address) | +--------+ + + + + | 05/13/ | Telephone | | Izabella Garvey, | Other (inquiring | | 2018 | | | BRAND STRATEGY MANAGER | about HCV medication | | | | | | PA) | +--------+ + + + + | 05/09/ | Documentati | | Izabella Garvey, | Tyree Only (04/17/18; | | 2018 | on Only | | BRAND STRATEGY MANAGER | HCV Genosure test | | | | | | Cx) | +--------+ + + + + | 05/09/ | Telephone | | Izabella Garvey, | Rodrigo (Genosure test | | 2018 | | | BRAND STRATEGY MANAGER | Cx) | +--------+ + + + + | 05/01/ | Telephone | | Shirley Kingsley MA | | | 2018 | | | | | +--------+ + + + + | 04/26/ | Telephone | | Izabella Garvey, | Rodrigo (patient is | | 2018 | | | BRAND STRATEGY MANAGER | wanting to know the | | | | | | status of his PA | | | | | | approval) | +--------+ + + + + | 04/23/ | Orders Only | | Brenda Garcia | | | 2019 | | | Leydi Roberts MD | | +--------+ + + + + | 04/23/ | Documentati | | Brenda Garcia | Labs Only (04/17/18; | | 2018 | on Only | | Leydi Roberts MD | CMP, AFP-TM, CBC, | | | | | | FIbrosure | | | | | | --[facility]) | +--------+ + + + + | 04/16/ | Initial | | Brenda Garcia | Chronic hepatitis C | | 2018 | consult | | Leydi Roberts MD | without hepatic coma | | | | | | (HCC) (Primary Dx) | +--------+ + + + + | 03/20/ | Documentati | | Michael Samayoa DO | Other (Referral from | | 2018 | on Only | | | [facility] | | | | | | Dr. Clemente- Hep C) | +--------+ + + + + from Last 3 Months Social History + +-------+ +--------+------+ | Tobacco Use | Types | Packs/Day | Years | Date | | | | | Used | | + +-------+ +--------+------+ | Current Every Day | | 0.25 | | | | Smoker | | | | | + +-------+ +--------+------+ + +---+---+---+ | Smokeless Tobacco: | | | | | Never Used | | | | + +---+---+---+ + + +---------+ + | Alcohol Use | Drinks/We | oz/Week | Comments | | | ek | | | + + +---------+ + | No | | | | + + +---------+ + + + + | Sex Assigned at | Date Recorded | | | | + + + | Not on file | | + + + Last Filed Vital Signs + + + + | Vital Sign | Reading | Time Taken | + + + + | Blood Pressure | 105/74 | 04/16/2018 1:02 PM PST | + + + + | Pulse | 94 | 04/16/2018 1:02 PM PST | + + + + | Temperature | 36.3 C (97.4 F) | 04/16/2018 1:02 PM PST | + + + + | Respiratory Rate | 16 | 04/16/2018 1:02 PM PST | + + + + | Oxygen Saturation | 95% | 04/16/2018 1:02 PM PST | + + + + | Inhaled Oxygen | - | - | | Concentration | | | + + + + | Weight | 71.7 kg (158 lb) | 04/16/2018 1:02 PM PST | + + + + | Height | 180.3 cm (5' 11") | 09/05/2017 12:59 PM PDT | + + + + | Body Mass Index | 22.04 | 04/16/2018 1:02 PM PST | + + + + Plan of Treatment + + + + + | Health Maintenance | Due Date | Last Done | Comments | + + + + + | Vaccine: | | | | | Dtap/Tdap/Td (1 - | 5 | | | | Tdap) | | | | + + + + + | Vaccine: | | | | | Pneumococcal 19-64 | 5 | | | | (PPSV23 only) Medium | | | | | Risk (1 of 1 - | | | | | PPSV23) | | | | + + + + + | Colon Cancer | | | | | Screening | 6 | | | | (Colonoscopy) | | | | + + + + + | Vaccine: Zoster (1 | | | | | of 2) | 6 | | | + + + + + | Vaccine: Influenza | | | | | (Season Ended) | 9 | | | + + + + + Procedures + +--------+ + + + | Procedure Name | Priori | Date/Time | Associated Diagnosis | Comments | | | ty | | | | + +--------+ + + + | HCV GENOSURE NS3/4A | Routin | 04/17/2018 | | Results for this | | | e | 12:00 AM | | procedure are in the | | | | PST | | results section. | + +--------+ + + + | COMPREHENSIVE | Routin | 04/17/2018 | | Results for this | | METABOLIC PANEL | e | 12:00 AM | | procedure are in the | | | | PST | | results section. | + +--------+ + + + | ALPHA FETO PROT NM | Routin | 04/17/2018 | | Results for this | | | e | 12:00 AM | | procedure are in the | | | | PST | | results section. | + +--------+ + + + | CBC W/AUTO DIFF | Routin | 04/17/2018 | | Results for this | | (REFLEX TO MANUAL) | e | 12:00 AM | | procedure are in the | | | | PST | | results section. | + +--------+ + + + | HCV FIBROSURE | Routin | 04/17/2018 | | Results for this | | | e | 12:00 AM | | procedure are in the | | | | PST | | results section. | + +--------+ + + + from Last 3 Months Results HCV Genosure NS3/4A (04/17/2018) + + | Specimen | + + | Blood | + + + + + | Impressions | Performed At | + + + | TEST CANCELLED Test number: [id number] Test name: HCV Genosure | [facility] | | Reason: Mutational analysis of the specified region could not be | LABORATORY | | obtained for Hepatitis C Virus (HCV) NS3/4A. The most common reasons | | | for failure are insufficient viral load, primer incompatibility, | | | incorrect genotype/subtype submission (must be 1a or 1b), and the | | | presence of inhibitory substances in the sample. Testing cannot be | | | performed. Izabella at [facility] was notified 05/09/18 HANS | | + + + + + + + + | Performing | Address | City/State/Zipcode | Phone Number | | Organization | | | | + + + + + | [facility] | [address] | [place] [address] | | | LABORATORY | 13 | | | + + + + + HCV fibrosure (04/17/2018) + + + + + | Component | Value | Ref Range | Performed At | + + + + + | HCV FIBROSURE | | | [facility] | | RESULTS | | | LABORATORY | + + + + + | FIBROSURE STAGE | | | [facility] | | | | | LABORATORY | + + + + + | Necroinflammat | 0.76 | | [facility] | | Activity Score | | | LABORATORY | + + + + + | Necroinflammat | A2/[id number]: Equal | | [facility] | | Activity Grade | probability between A2 | | LABORATORY | | | and A3 | | | + + + + + | ALPHA 2 MACRO | 454 (A) | 131 - 293 | [facility] | | GLOBULIN | | | LABORATORY | + + + + + | HAPTOGLOBIN | | | [facility] | | | | | LABORATORY | + + + + + | APOLIPO PROTEIN A 1 | | | [facility] | | | | | LABORATORY | + + + + + | BILIRUBIN, TOTAL | | mg/dL | [facility] | | | | | LABORATORY | + + + + + | GGT | 20 | 7 - 51 | [facility] | | | | | LABORATORY | + + + + + | ALT (SGPT) P5P | 32 | 5 - 50 | [facility] | | | | | LABORATORY | + + + + + + + + | Impressions | Performed At | + + + | FIBROSURE: AST: Value: 26 Ref. | [facility] | | Range: 9-50 u/L BUN: Value: 22 | LABORATORY | | (high) Ref. Range: 7-20 mg/dL Platelet count: | | | Value: 225 Ref. Range: Prothrombin Index: | | | Value: 62 (low) Ref. Range: 90-120% Fibrometer Score: | | | 0.94 Cirrhometer Score: 0.62 Fibrosis Class: F4 | | | [F3-F4] Predominance of F4, but F3 is possible. | | + + + + + + + + | Performing | Address | City/State/Zipcode | Phone Number | | Organization | | | | + + + + + | [facility] | [address] | [place] [address] | | | LABORATORY | 13 | | | + + + + + Alpha feto prot NM (04/17/2018) + +-------+ + + | Component | Value | Ref Range | Performed At | + +-------+ + + | ALPHA FETO PROT NM | 1.30 | 0 - 7.00 | [facility] | | | | | LABORATORY | + +-------+ + + + + | Specimen | + + | Blood | + + + + + + + | Performing | Address | City/State/Zipcode | Phone Number | | Organization | | | | + + + + + | [facility] | [address] | [place] [address] | | | LABORATORY | 13 | | | + + + + + CBC W/Auto Diff (Reflex to Manual) (04/17/2018) + + + + + | Component | Value | Ref Range | Performed At | + + + + + | WBC | 17.7 (A) | 4.5 - 11.0 10^3/mL | [facility] | | | | | LABORATORY | + + + + + | RBC | 4.54 | 10^6/ L | [facility] | | | | | LABORATORY | + + + + + | HGB | 14.2 | g/dL | [facility] | | | | | LABORATORY | + + + + + | HCT | 42.9 | % | [facility] | | | | | LABORATORY | + + + + + | MCV | 94.5 | fL | [facility] | | | | | LABORATORY | + + + + + | MCH | 31 | pg | [facility] | | | | | LABORATORY | + + + + + | MCHC | 33 | g/dL | [facility] | | | | | LABORATORY | + + + + + | PLT | 225 | K/ L | [facility] | | | | | LABORATORY | + + + + + | RDW SD | 13.7 | % | [facility] | | | | | LABORATORY | + + + + + | MPV | | fL | [facility] | | | | | LABORATORY | + + + + + | DIFF TYPE | | | [facility] | | | | | LABORATORY | + + + + + | NEUTROPHILS | 88.4 (A) | 39 - 80 % | [facility] | | | | | LABORATORY | + + + + + | LYMPHOCYTES | 4.1 (A) | 24 - 44 % | [facility] | | | | | LABORATORY | + + + + + | MONOCYTES | 7.3 | % | [facility] | | | | | LABORATORY | + + + + + | EOSINOPHILS | 0.0 | % | [facility] | | | | | LABORATORY | + + + + + | BASOPHILS | 0.2 | % | [facility] | | | | | LABORATORY | + + + + + | NEUTROPHILS ABS | | / L | [facility] | | | | | LABORATORY | + + + + + | LYMPHOCYTES ABS | | / L | [facility] | | | | | LABORATORY | + + + + + | MONOCYTES ABS | | / L | [facility] | | | | | LABORATORY | + + + + + | EOSINOPHILS ABS | | / L | [facility] | | | | | LABORATORY | + + + + + | BASOPHILS ABS | | / L | [facility] | | | | | LABORATORY | + + + + + + + | Specimen | + + | Blood | + + + + + + + | Performing | Address | City/State/Zipcode | Phone Number | | Organization | | | | + + + + + | [facility] | [address] | [place] [address] | | | LABORATORY | 13 | | | + + + + + Comprehensive metabolic panel (04/17/2018) + +---------+ + + | Component | Value | Ref Range | Performed At | + +---------+ + + | GLUCOSE | 161 (A) | 70 - 100 mg/dL | [facility] | | | | | LABORATORY | + +---------+ + + | BUN | 22 | mg/dL | [facility] | | | | | LABORATORY | + +---------+ + + | CREATININE | 1.08 | mg/dL | [facility] | | | | | LABORATORY | + +---------+ + + | BUN/CREAT | 20.4 | | [facility] | | | | | LABORATORY | + +---------+ + + | CALCIUM | 9.0 | mg/dL | [facility] | | | | | LABORATORY | + +---------+ + + | TOTAL PROTEIN | 6.2 | g/dL | [facility] | | | | | LABORATORY | + +---------+ + + | Albumin | 3.5 | | [facility] | | | | | LABORATORY | + +---------+ + + | GLOBULIN | 2.7 | | [facility] | | | | | LABORATORY | + +---------+ + + | A/G | 1.3 | | [facility] | | | | | LABORATORY | + +---------+ + + | TBIL | 0.9 | mg/dL | [facility] | | | | | LABORATORY | + +---------+ + + | ALK PHOS | 67 | | [facility] | | | | | LABORATORY | + +---------+ + + | ALT | 24 | U/L | [facility] | | | | | LABORATORY | + +---------+ + + | AST | 18 | U/L | [facility] | | | | | LABORATORY | + +---------+ + + | SODIUM | 134 | mmol/L | [facility] | | | | | LABORATORY | + +---------+ + + | POTASSIUM | 3.8 | mmol/L | [facility] | | | | | LABORATORY | + +---------+ + + | CHLORIDE | 98 | mmol/L | [facility] | | | | | LABORATORY | + +---------+ + + | CO2 | 24 | mmol/L | [facility] | | | | | LABORATORY | + +---------+ + + | ANION GAP AGAP | 15.8 | mmol/L | [facility] | | | | | LABORATORY | + +---------+ + + | EGFR | 69 | mg/dL | [facility] | | | | | LABORATORY | + +---------+ + + + + | Specimen | + + | Blood | + + + + + + + | Performing | Address | City/State/Zipcode | Phone Number | | Organization | | | | + + + + + | [facility] | [address] | [place] [address] | | | LABORATORY | 13 | | | + + + + + from Last 3 Months Insurance + +--------+ +------+-------+ + | Payer | Benefi | Subscriber | Type | Phone | Address | | | t Plan | ID | | | | | | / | | | | | | | Group | | | | | + +--------+ +------+-------+ + | MEDICAID | [place] | [id number] | | | [address] | | | N | | | | [place] | | | [place] | | | | [address] | | | ARMATURE REWINDER | | | | | + +--------+ +------+-------+ + + +--------+ +--------+ + + | Guarantor Name | Accoun | Relation to | Date | Phone | Billing Address | | | t Type | Patient | of | | | | | | | | | | + +--------+ +--------+ + + | ALSTEEN,MAITE W | Person | Self [birth year] Home: | [address] | | | al/Fam | | 1955 | [phone] [address] [place] [address] | | | [place] | | | [phone] | [place] | | | | | | | [phone] | + +--------+ +--------+ + +
--- OUTSIDE RECORDS SUMMARY | ~2018-06-17 | XMS | Encounter Summary ---
Demographics + + + | Address | [address] | | | [place] [address] | + + + | Home Phone | | + + + | Preferred Language | Unknown | + + + | Marital Status | | + + + | Mormonism Affiliation | Unknown | + + + | Race | Unknown | + + + | Ethnic Group | Unknown | + + + Author + + + | Author | [id number] | + + + | Organization | [facility] | + + + | Address | Unknown | + + + | Phone | Unavailable | + + + Support + + +---------+ + | Name | Relationship | Address | Phone | + + +---------+ + | Julio Cesar Williamson | ECON | Unknown | | + + +---------+ + Care Team Providers + +------+ + | Care Medical Instrument Cable Fabricator Name | Role | Phone | + +------+ + | Alyx Clemente MD | PCP | Unavailable | + +------+ + Reason for Visit +--------+ + | Reason | Comments | +--------+ + | Other | inquiring about HCV medication PA | +--------+ + Encounter Details +--------+ + + + + | Date | Type | Department | Care Team | Description | +--------+ + + + + | 05/13/ | Telephone | [facility] | Izabella Garvey, | Other (inquiring | | 2019 | | Infectious Disease | DEFLASH AND WASH OPERATOR | about HCV medication | | | | [address] | | [place]) | | | | [facility] [address] | | | | | | [place] [address] | | | | | | [phone] | | | +--------+ + + + + Social History + +-------+ +--------+------+ | Tobacco [...] on file | | + + + as of this encounter Plan of Treatment Not on fileas of this encounter Visit Diagnoses Not on filein this encounter"
--- OUTSIDE RECORDS SUMMARY | ~2018-06-17 | XMS | Encounter Summary ---
Demographics + + + | Address | [address] | | | [place] [address] | + + + | Home Phone | | + + + | Preferred Language | Unknown | + + + | Marital Status | | + + + | Sikhism Affiliation | Unknown | + + + | Race | Unknown | + + + | Ethnic Group | Unknown | + + + Author + + + | Author | [facility] [employer] | + + + | Organization | [facility] | + + + | Address | Unknown | + + + | Phone | Unavailable | + + + Support + + +---------+ + | Name | Relationship | Address | Phone | + + +---------+ + | Julio Cesar Williamson | ECON | Unknown | | + + +---------+ + Care Team Providers + +------+ + | Care Hot Wort Settler Name | Role | Phone | + +------+ + | Alyx Clemente MD | PCP | Unavailable | + +------+ + Encounter Details +--------+ + + + + | Date | Type | Department | Care Team | Description | +--------+ + + + + | 04/23/ | Orders Only | [facility] | Brenda Garcia | | | 2019 | | Infectious Disease | Leydi Roberts MD | | | | | [address] | [address] | | | | | [facility] [address] | [place] [address] | | | | | [place] [address] | [phone] | | | | | [phone] | | | +--------+ + + + [...]
--- OUTSIDE RECORDS SUMMARY | ~2018-06-17 | XMS | Encounter Summary ---
Demographics + + + | Address | [address] | | | [place] [address] | + + + | Home Phone | | + + + | Preferred Language | Unknown | + + + | Marital Status | | + + + | Lutheran Affiliation | Unknown | + + + | Race | Unknown | + + + | Ethnic Group | Unknown | + + + Author + + + | Author | [email or web address] | + + + | Organization | [facility] [employer] [facility] | + + + | Address | Unknown | + + + | Phone | Unavailable | + + + Support + + +---------+ + | Name | Relationship | Address | Phone | + + +---------+ + | Julio Cesar Williamson | ECON | Unknown | | + + +---------+ + Care Team Providers + +------+ + | Care Sales And Service Technician Name | Role | Phone | + +------+ + | Alyx Clemente MD | PCP | Unavailable | + +------+ + Reason for Visit +--------+ + | Reason | Comments | +--------+ + | Other | Genosure test Cx | +--------+ + Encounter Details +--------+ + + + + | Date | Type | Department | Care Team | Description | +--------+ + + + + | 05/09/ | Telephone | [facility] | Izabella Garvey, | Other (Genosure test | | 2018 | | Infectious Disease | CANCER REGISTRY MANAGER | Cx) | | | | [address] | | | | | | [place] [address] | | | | | | [place] [address] | | | | | | [phone] | | | +--------+ + + + [...]
--- OUTSIDE RECORDS SUMMARY | ~2018-06-17 | XMS | Encounter Summary ---
Demographics + + + | Address | [address] | | | [place] [address] | + + + | Home Phone | | + + + | Preferred Language | Unknown | + + + | Marital Status | | + + + | Mormon Affiliation | Unknown | + + + | Race | Unknown | + + + | Ethnic Group | Unknown | + + + Author + + + | Author | [employer] | + + + | Organization | [facility] [employer] | + + + | Address | Unknown | + + + | Phone | Unavailable | + + + Support + + +---------+ + | Name | Relationship | Address | Phone | + + +---------+ + | Julio Cesar Williamson | ECON | Unknown | | + + +---------+ + Care Team Providers + +------+ + | Care Immunopathologist Name | Role | Phone | + [...] + + | 05/13/ | Telephone | [facility] | Izabella Garvey, | Other (inquiring | | 2019 | | Infectious Disease | SIEBEL ARCHITECT | about HCV medication | | | | [address] | | [place]) | | | | [facility] [address] | | | | | | [place] [address] | | | | | | [phone] | | | +--------+ + + + [...]
--- OUTSIDE RECORDS SUMMARY | ~2018-06-17 | XMS | Encounter Summary ---
Demographics + + + | Address | [address] | | | [place] [address] | + + + | Home Phone | | + + + | Preferred Language | Unknown | + + + | Marital Status | | + + + | Oriental Orthodox Affiliation | Unknown | + + + | Race | Unknown | + + + | Ethnic Group | Unknown | + + + Author + + + | Author | [employer] | + + + | Organization | [facility] [employer] [facility] | + + + | Address | Unknown | + + + | Phone | Unavailable | + + + Support + + +---------+ + | Name | Relationship | Address | Phone | + + +---------+ + | Julio Cesar Williamson | ECON | Unknown | | + + +---------+ + Care Team Providers + +------+ + | Care Traffic Law Attorney Name | Role | Phone | + +------+ + | Alyx Clemente MD | PCP | Unavailable | + +------+ + Reason for Visit +--------+ + | Reason | Comments | +--------+ + | Other | Referral from [facility] Dr. Ashley Lantigua | +--------+ + Encounter Details +--------+ + + + + | Date | Type | Department | Care Team | Description | +--------+ + + + + | 03/20/ | Documentati | [facility] | Michael Samayoa DO | Other (Referral from | | 2019 | on Only | Infectious Disease | [address] | [facility] | | | | [address] | [place] [address] | Dr. Clemente- Elissa Lantigua) | | | | [facility] [address] | [phone] | | | | | [place] [address] | | | | | | [phone] | | | +--------+ + + + [...]
--- OUTSIDE RECORDS SUMMARY | ~2018-06-17 | XMS | Encounter Summary ---
Demographics + + + | Address | [address] | | | [place] [address] | + + + | Home Phone | | + + + | Preferred Language | Unknown | + + + | Marital Status | | + + + | Rastafari Affiliation | Unknown | + + + | Race | Unknown | + + + | Ethnic Group | Unknown | + + + Author + + + | Author | [employer] | + + + | Organization | [facility] [employer] [facility] | + + + | Address | Unknown | + + + | Phone | Unavailable | + + + Support + + +---------+ + | Name | Relationship | Address | Phone | + + +---------+ + | Julio Cesar Williamson | ECON | Unknown | | + + +---------+ + Care Team Providers + +------+ + | Care Referral Specialist Name | Role | Phone | + +------+ + | Alyx Clemente MD | PCP | Unavailable | + +------+ + Reason for Visit +--------+ + | Reason | Comments | +--------+ + | Other | patient is wanting to know the status of his PA approval | +--------+ + Encounter Details +--------+ + + + + | Date | Type | Department | Care Team | Description | +--------+ + + + + | 04/26/ | Telephone | [facility] | Izabella Garvey, | Other (patient is | | 2019 | | 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 | | status of his PA | | | | [facility] [id number] | | approval) | | | | [place] [address] | | | | | | [phone] | | | +--------+ + + + [...]
--- OUTSIDE RECORDS SUMMARY | ~2018-06-17 | XMS | Encounter Summary ---
Demographics + + + | Address | [address] | | | [place] [address] | + + + | Home Phone | | + + + | Preferred Language | Unknown | + + + | Marital Status | | + + + | Sikhism Affiliation | Unknown | + + + | Race | Unknown | + + + | Ethnic Group | Unknown | + + + Author + + + | Author | [employer] | + + + | Organization | [facility] [employer] [facility] | + + + | Address | Unknown | + + + | Phone | Unavailable | + + + Support + + +---------+ + | Name | Relationship | Address | Phone | + + +---------+ + | Julio Cesar Williamson | ECON | Unknown | | + + +---------+ + Care Team Providers + +------+ + | Care Show Card Writer Name | Role | Phone | + +------+ + | Alyx Clemente MD | PCP | Unavailable | + +------+ + Reason for Visit +--------+ + | Reason | Comments | +--------+ + | Other | Patient called to update delivery address | +--------+ + Encounter Details +--------+ + + + + | Date | Type | Department | Care Team | Description | +--------+ + + + + | 06/14/ | Telephone | [facility] | Izabella Garvey, | Other (Patient | | 2019 | | Infectious Disease | [facility] [facility] | called to update | | | | [address] | | delivery address) | | | | [facility] [address] | | | | | | [place] [address] | | | | | | [phone] | | | +--------+ + + + [...]
--- OUTSIDE RECORDS SUMMARY | ~2018-06-17 | XMS | Encounter Summary ---
Demographics + + + | Address | [address] | | | [place] [address] | + + + | Home Phone | | + + + | Preferred Language | Unknown | + + + | Marital Status | | + + + | Orthodoxy Affiliation | Unknown | + + + | Race | Unknown | + + + | Ethnic Group | Unknown | + + + Author + + + | Author | [employer] | + + + | Organization | [facility] [employer] [facility] | + + + | Address | Unknown | + + + | Phone | Unavailable | + + + Support + + +---------+ + | Name | Relationship | Address | Phone | + + +---------+ + | Julio Cesar Williamson | ECON | Unknown | | + + +---------+ + Care Team Providers + +------+ + | Care Wood Cabinetmaker Name | Role | Phone | + +------+ + | Alyx Clemente MD | PCP | Unavailable | + +------+ + Encounter Details +--------+ + + + + | Date | Type | Department | Care Team | Description | +--------+ + + + + | 04/23/ | Orders Only | [facility] | Brenda Garcia | | | 2019 | | Infectious Disease | Leydi Roberts MD | | | | | [address] | [address] | | | | | [facility] [address] | [place] [address] | | | | | [place] [address] | [phone] | | | | | [phone] | | | +--------+ + + + [...]
--- OUTSIDE RECORDS SUMMARY | ~2018-06-17 | XMS | Encounter Summary ---
Demographics + + + | Address | [address] | | | [place] [address] | + + + | Home Phone | | + + + | Preferred Language | Unknown | + + + | Marital Status | | + + + | Church Affiliation | Unknown | + + + | Race | Unknown | + + + | Ethnic Group | Unknown | + + + Author + + + | Author | [facility] [employer] [facility] | + + + | Organization | [facility] [employer] [facility] | + + + | Address | Unknown | + + + | Phone | Unavailable | + + + Support + + +---------+ + | Name | Relationship | Address | Phone | + + +---------+ + | Julio Cesar Williamson | ECON | Unknown | | + + +---------+ + Care Team Providers + +------+ + | Care Executive Officer Name | Role | Phone | + [...] + + | 05/09/ | Telephone | [facility] | Izabella Garvey, | Other (Genosure test | | 2018 | | Infectious Disease | HEALTH INFORMATION MANAGERS | Cx) | | | | [address] | | | | | | [place] [address] | | | | | | [place] [address] | | | | | | [phone] | | | +--------+ + + + [...]
--- OUTSIDE RECORDS SUMMARY | ~2018-06-17 | XMS | Encounter Summary ---
Demographics + + + | Address | [address] | | | [place] [address] | + + + | Home Phone | | + + + | Preferred Language | Unknown | + + + | Marital Status | | + + + | Congregational Affiliation | Unknown | + + + | Race | Unknown | + + + | Ethnic Group | Unknown | + + + Author + + + | Author | [employer] | + + + | Organization | [facility] | + + + | Address | Unknown | + + + | Phone | Unavailable | + + + Support + + +---------+ + | Name | Relationship | Address | Phone | + + +---------+ + | Julio Cesar Williamson | ECON | Unknown | | + + +---------+ + Care Team Providers + +------+ + | Care Volunteer Services Manager Name | Role | Phone | + +------+ + | Alyx Clemente MD | PCP | Unavailable | + +------+ + Reason for Visit + + + | Reason | Comments | + + + | Labs Only | 04/17/18; CMP, AFP-TM, CBC, FIb[facility] --[facility] | + + + Encounter Details +--------+ + + + + | Date | Type | Department | Care Team | Description | +--------+ + + + + | 04/23/ | Documentati | [facility] | Brenda Garcia | Labs Only (04/17/18; | | 2018 | on Only | Infectious Disease | Leydi Roberts MD | CMP, AFP-TM, CBC, | | | | [address] | [address] | [facility] | | | | [facility] [address] | [place] [address] | --[facility]) | | | | [place] [address] | [phone] | | | | | [phone] | | | +--------+ + + + [...] Treatment Not on fileas of this encounter Procedures + +--------+ + + + | [...] section. | + +--------+ + + + in this encounter Results Comprehensive metabolic panel (04/17/2018) + +---------+ + [...] | [address] | [place] [address] | | | LABORATORY | 13 | [...] | [address] | [place] [address] | | | LABORATORY | 13 | [...] | [address] | [place] [address] | | | LABORATORY | 13 | [...] + + + + | Necroinflammat | A2/J4Tqaarmh: Equal | | [facility] | | Activity [...] | [address] | [place] [address] | | | LABORATORY | 13 | | | + + + + + in this encounter Visit Diagnoses Not on filein this encounter"
--- OUTSIDE RECORDS SUMMARY | ~2018-06-17 | XMS | Encounter Summary ---
Demographics + + + | Address | [address] | | | [place] [address] | + + + | Home Phone | | + + + | Preferred Language | Unknown | + + + | Marital Status | | + + + | Tenriism Affiliation | Unknown | + + + | Race | Unknown | + + + | Ethnic Group | Unknown | + + + Author + + + | Author | [facility] | + + + | Organization | [facility] [employer] [facility] | + + + | Address | Unknown | + + + | Phone | Unavailable | + + + Support + + +---------+ + | Name | Relationship | Address | Phone | + + +---------+ + | Julio Cesar Williamson | ECON | Unknown | | + + +---------+ + Care Team Providers + +------+ + | Care Rn Community Health Name | Role | Phone | + +------+ + | Alyx Clemente MD | PCP | Unavailable | + +------+ + Reason for Visit +--------+ + | Reason | Comments | +--------+ + | Other | Referral from [facility] Dr. Ashley Lantigua | +--------+ + Encounter Details +--------+ + + + + | Date | Type | Department | Care Team | Description | +--------+ + + + + | 03/20/ | Documentati | [facility] | Michael Samayoa DO | Other (Referral from | | 2019 | on Only | Infectious Disease | [address] | [facility] | | | | [address] | [place] [address] | Dr. Clemente- Elissa Lantigua) | | | | [facility] [address] | [phone] | | | | | [place] [address] | | | | | | [phone] | | | +--------+ + + + [...]
--- OUTSIDE RECORDS SUMMARY | ~2018-06-17 | XMS | Encounter Summary ---
Demographics + + + | Address | [address] | | | [place] [address] | + + + | Home Phone | | + + + | Preferred Language | Unknown | + + + | Marital Status | | + + + | Samaritan Affiliation | Unknown | + + + | Race | Unknown | + + + | Ethnic Group | Unknown | + + + Author + + + | Author | [employer] | + + + | Organization | [facility] | + + + | Address | Unknown | + + + | Phone | Unavailable | + + + Support + + +---------+ + | Name | Relationship | Address | Phone | + + +---------+ + | Julio Cesar Williamson | ECON | Unknown | | + + +---------+ + Care Team Providers + +------+ + | Care Gas Producer Name | Role | Phone | + +------+ + | Alyx Clemente MD | PCP | Unavailable | + +------+ + Reason for Visit + + + | Reason | Comments | + + + | Establish Care | Hep C | + + + Consult and Treat (Routine) + +--------+ + + + + | Status | Reason | Specialty | Diagnoses / | Referred By | Referred To | | | | | Procedures | Contact | Contact | + +--------+ + + + + | Authorized | | Infectious | Diagnoses | Clinic, | [facility] | | | | Diseases | Chronic | [facility] | Infectious | | | | | viral | [address] | [address] | | | | | hepatitis C | [facility] [address] | [address] | | | | | (HCC) | [place], | [facility] | | | | | | [place] [address] | [address] | | | | | | Phone: | [place], [place] | | | | | | [phone] | [address] Phone: | | | | | | Fax: | [phone] | | | | | | [phone] | Fax: | | | | | | | [phone] | + +--------+ + + + + Encounter Details +--------+ + + + + | Date | Type | Department | Care Team | Description | +--------+ + + + + | 04/16/ | Initial | [facility] | Brenda Garcia | Chronic hepatitis C | | 2019 | consult | Infectious Disease | Leydi Roberts MD | without hepatic coma | | | | [address] | [address] | (HCC) (Primary Dx) | | | | [facility] [address] | [place] [address] | | | | | [place] [address] | [phone] | | | | | [phone] | | | +--------+ + + + [...] + + + as of this encounter Last Filed Vital Signs + + + [...] + + + + | Height | - | - | + + + + | Body Mass Index | 22.04 | 04/16/2018 1:02 PM PST | + + + + in this encounter Instructions Patient Instructions - Brenda Garcia MD - 04/16/2018 1:20 PM PST1) labs tod ay 2) will send pre-auth/appeal to [employer] insurance 3) Call us when you receive your meds or if you haven't heard in a monthin this encounter Progress Notes Brenda Garcia MD - 04/16/2018 1:20 PM PSTFormatting of this note may be dif ferent from the original. [facility] Service: Infectious Diseases Outpatient Initial Consult Note Reason for Consult Hepatitis C CHIEF COMPLAINT Hepatitis C HISTORY OF PRESENT ILLNESS The patient is a 62 y.o.-year-old male with significant PMH of coronary artery disease with 3 myocardial infarctions-- one in January 2016 and 2 in April and June 2016. He also has a significant smoking history and diagnosed with COPD 1996. He was diagnosed with hepat itis C in 1969 and is untreated. He stated that for the most part this was dormant until 16. He denies any IV drug use, but thinks he may have acquired it through non-sterile medic al means. Over the last year, patient has been worked up for initiation of a hepatitis C treatment re [facility]. He had a liver biopsy in October 2017 that showed mild fibrosis. HIV tests were nega tive as were hepatitis B serologies. Genotypes to be. Unfortunately, patient was denied hi s first prescription through [employer] insurance. He is here for second opinion. Patient otherwise feeling well. He states that occasionally he notices his eyes are Maurie llo. He has felt bloated for 2-3 days a few weeks ago. However, denies any overt signs of liver decompensation. Infectious Disease (ID) consult requested for further evaluation and m anagement. PAST MEDICAL HISTORY Past Medical History Diagnosis Date Chronic obstructive pulmonary disease (HCC) Coronary artery disease Hepatitis C virus infection Hyperlipidemia Past Surgical History Procedure Laterality Date SKIN GRAFT Left leg at age 4 Social History Social History Marital status: Spouse name: N/A Number of children: N/A Years of education: N/A Occupational History Not on file. Social History Main Topics Smoking status: Current Every Day Smoker Packs/day: 0.25 Smokeless tobacco: Never Used Alcohol use No Drug use: Unknown Sexual activity: Not on file Other Topics Concern Not on file Social History Narrative No narrative on file No family history on file. Current Outpatient Prescriptions Medication Sig Dispense Refill aspirin 81 MG tablet Take 81 mg by mouth daily. atorvastatin (LIPITOR) 20 MG tablet Take 20 mg by mouth daily. 0 beclomethasone (QVAR) 40 MCG/ACT inhaler Inhale 1 puff into the lungs 2 (two) times daog ly. clopidogrel (PLAVIX) 75 MG tablet Take 75 mg by mouth daily. fluticasone (FLONASE) 50 MCG/ACT nasal instill 2 sprays into each nostril at bedtime 1 ipratropium-albuterol (DUO-NEB) 0.5-2.5 mg/3mL 0 isosorbide mononitrate (IMDUR) 30 MG 24 hr tablet Take 30 mg by mouth daily. metoprolol (TOPROL-XL) 25 MG 24 hr tablet take 1 tablet by mouth NIGHTLY FOR HEART 0 SEREVENT DISKUS 50 MCG/DOSE diskus inhaler 1 SPIRIVA HANDIHALER 18 MCG inhalation capsule Inhale 18 mcg into the lungs daily. 0 tamsulosin (FLOMAX) 0.4 MG capsule take 2 capsules by mouth once daily FOR ENLARGED PRO STATE 0 VENTOLIN HFA 108 (90 Base) MCG/ACT inhaler 1 No current facility-administered medications for this visit. ALLERGIES Not on File REVIEW OF SYSTEMS Negative except for pertinent items noted in HPI. PHYSICAL EXAM Vital Signs: BP 105/74 (BP Location: Left upper arm, Patient Position: Sitting) | Pulse 94 | Temp 97.4 F (36.3 C) (Oral) | Resp 16 | Wt 71.7 kg (158 lb) | SpO2 95% | BMI 22.04 kg/m General Appearance: Alert, cooperative, no distress Head: Normocephalic, without obvious abnormality, atraumatic. Lips, mucosa, and tongue normal; dentition normal; no thrush present. Eyes: PERRL, conjunctiva/corneas clear, EOM's intact. Throat: Oropharynx without exudates. Neck: Supple, symmetrical, trachea midline, no adenopathy; thyroid: no enlargement/tenderness/nodules; no carotid bruit or JVD Back: Symmetric, no curvature, ROM normal, no CVA tenderness Lungs: Clear to auscultation bilaterally, respirations unlabored Chest Wall: No tenderness or deformity Heart: Regular rate and rhythm, S1 and S2 normal,no rub or gallop Abdomen: Soft, non-tender, bowel sounds active all four quadrants, no masses, no organomegaly Extremities: Extremities normal, atraumatic, no cyanosis or edema Pulses: 2+ and symmetric all extremities Skin: Skin color, texture, turgor normal, no rashes or lesions Lymph nodes: Cervical, supraclavicular, and axillary nodes normal Neurologic: normal without focal findings and mental status, speech normal, alert and orien valdemar x3 REVIEW OF LABS: PROBLEM LIST Active Problems: * No active hospital problems. * ASSESSMENT AND RECOMMENDATIONS The patient is a 62 y.o.-year-old male with the following problems: Hepatitis C, genotype 2b, untreated Mild fibrosis by liver biopsy Check fibrosure and AFP Will send appeal through [place] insurance Follow up in 2-3 months Discussed treatment plan with patient. All questions and concerns addressed. Patient verbal ized understanding and agrees to proceed with the plan/s as outlined above. Thank you for allowing us to participate in this patient's care. A return visit has been re quested/scheduled in 2-3 months for routine clinical follow up. The patient was instructed t o call our clinic for any questions, and for any concerns regarding worsening symptoms, incl uding fevers/chills/side effects from medication, especially diarrhea. We will see the patie nt sooner than the recommended follow up date, if with any worsening of symptoms. Brenda Garcia MD Infectious Diseases [facility] [address] [place] [address] O: F: 04/16/2018 1:47 PM in this encounter Plan of Treatment + +--------+ + + | Name | Priori | Associated Diagnoses | Order Schedule | | | ty | | | + +--------+ + + | CBC W/Auto Diff (Reflex to | Routin | Chronic hepatitis | Expected: | | Manual) | e | C without hepatic | 04/16/2018, Expires: | | | | coma (HCC) | 04/16/2019 | + +--------+ + + | Comprehensive metabolic panel | Routin | Chronic hepatitis | Expected: | | | e | C without hepatic | 04/16/2018, Expires: | | | | coma (HCC) | 04/16/2019 | + +--------+ + + | Hepatitis C Fibrosure | Routin | Chronic hepatitis | Expected: | | | e | C without hepatic | 04/16/2018, Expires: | | | | coma (HCC) | 05/21/2019 | + +--------+ + + | HCV Genosure NS3/4A | Routin | Chronic hepatitis | Expected: | | | e | C without hepatic | 04/16/2018, Expires: | | | | coma (HCC) | 04/16/2019 | + +--------+ + + | Alpha feto prot NM | Routin | Chronic hepatitis | Expected: | | | e | C without hepatic | 04/16/2018, Expires: | | | | coma (HCC) | 04/16/2019 | + +--------+ + + as of this encounter Visit Diagnoses + + | Diagnosis | + + | Chronic hepatitis C without hepatic coma (HCC) - Primary | + +"
--- OUTSIDE RECORDS SUMMARY | ~2018-06-17 | XMS | Encounter Summary ---
Demographics + + + | Address | [address] | | | [place] [address] | + + + | Home Phone | | + + + | Preferred Language | Unknown | + + + | Marital Status | | + + + | Hoahaoism Affiliation | Unknown | + + + | Race | Unknown | + + + | Ethnic Group | Unknown | + + + Author + + + | Author | [email or web address] | + + + | Organization | [facility] | + + + | Address | Unknown | + + + | Phone | Unavailable | + + + Support + + +---------+ + | Name | Relationship | Address | Phone | + + +---------+ + | Julio Cesar Williamson | ECON | Unknown | | + + +---------+ + Care Team Providers + +------+ + | Care Commercial Account Officer Name | Role | Phone | [...] | | | (HCC) | [place], | [facility] | | | | | | [place] [address] | [address] | | | | | | Phone: | [place], [place] | | | | | | [phone] | [address] Phone: | | | | | | Fax: | [phone] | | | | | | [phone] | Fax: | | | | | | | [phone] | + +--------+ + + + + Encounter Details +--------+ + + + + | Date | Type | Department | Care Team | Description | +--------+ + + + + | 04/16/ | Initial | [facility] | Brenda Garcia | Chronic hepatitis C | | 2019 | consult | Infectious Disease | Leydi Roberts MD | without hepatic coma | | | | [address] | [address] | (HCC) (Primary Dx) | | | | [facility] [address] | [place] [address] | | | | | [place] [address] | [phone] | | | | | [phone] | | | +--------+ + + + [...] tod ay 2) will send pre-auth/appeal to [employer] 3) Call us when you receive your meds or if you haven't heard in a monthin this encounter Progress Notes Brenda Garcia MD - 04/16/2018 1:20 PM PSTFormatting of this note may be dif ferent from the original. [facility] Service: Infectious Diseases Outpatient Initial Consult Note [...] initiation of a hepatitis C treatment re [facility]. He had a liver biopsy in October 2017 that showed mild fibrosis. HIV tests were nega tive as were hepatitis B serologies. Genotypes to be. Unfortunately, patient was denied hi s first prescription through [employer]. He is here for second opinion. [...] fibrosure and AFP Will send appeal through [place] insurance Follow up in 2-3 months Discussed [...] of symptoms. Brenda Garcia MD Infectious Diseases [facility] [address] [place] [id number] O: F: 04/16/2018 1:47 PM in this [...]
--- OUTSIDE RECORDS SUMMARY | ~2018-06-17 | XMS | Encounter Summary ---
Demographics + + + | Address | [address] | | | [place] [address] | + + + | Home Phone | | + + + | Preferred Language | Unknown | + + + | Marital Status | | + + + | Quaker Affiliation | Unknown | + + + | Race | Unknown | + + + | Ethnic Group | Unknown | + + + Author + + + | Author | [employer] | + + + | Organization | [facility] | + + + | Address | Unknown | + + + | Phone | Unavailable | + + + Support + + +---------+ + | Name | Relationship | Address | Phone | + + +---------+ + | Julio Cesar Williamson | ECON | Unknown | | + + +---------+ + Care Team Providers + +------+ + | Care Sericulturist Name | Role | Phone | + +------+ + | Alyx Clemente MD | PCP | Unavailable | + +------+ + Encounter Details +--------+ + + + + | Date | Type | Department | Care Team | Description | +--------+ + + + + | 05/01/ | Telephone | [facility] | Shirley Kingsley MA | | | 2019 | | Infectious Disease | | | | | | [address] | | | | | | [facility] [address] | | | | | | [place] [address] | | | | | | [phone] | | | +--------+ + + + [...]
--- OUTSIDE RECORDS SUMMARY | ~2018-06-17 | XMS | Encounter Summary ---
Demographics + + + | Address | [address] | | | [place] [address] | + + + | Home Phone | | + + + | Preferred Language | Unknown | + + + | Marital Status | | + + + | Rastafari Affiliation | Unknown | + + + | Race | Unknown | + + + | Ethnic Group | Unknown | + + + Author + + + | Author | [employer] | + + + | Organization | [facility] | + + + | Address | Unknown | + + + | Phone | Unavailable | + + + Support + + +---------+ + | Name | Relationship | Address | Phone | + + +---------+ + | Julio Cesar Williamson | ECON | Unknown | | + + +---------+ + Care Team Providers + +------+ + | Care Front Elevator Operator Name | Role | Phone | + [...] + + | 04/23/ | Documentati | [facility] | Brenda Garcia | Labs Only (04/17/18; | | 2018 | on Only | Infectious Disease | Leydi Roberts MD | CMP, AFP-TM, CBC, | | | | [address] | [address] | [employer] | | | | [facility] [address] | [place] [address] | --[facility]) | | | | [place] [address] | [phone] | | | | | [phone] | | | +--------+ + + + [...] | [address] | [place] [address] | | | LABORATORY | 13 | [...] | [address] | [place] [address] | | | LABORATORY | 13 | [...] | [address] | [place] [address] | | | LABORATORY | 13 | [...] + + + + | Necroinflammat | A2/N4Iqlffwm: Equal | | [facility] | | Activity [...] | [address] | [place] [address] | | | LABORATORY | 13 | | | + + + + + in this encounter Visit Diagnoses Not on filein this encounter"
--- OUTSIDE RECORDS SUMMARY | ~2018-06-17 | XMS | Encounter Summary ---
Demographics + + + | Address | [address] | | | [place] [address] | + + + | Home Phone | | + + + | Preferred Language | Unknown | + + + | Marital Status | | + + + | Congregational Affiliation | Unknown | + + + | Race | Unknown | + + + | Ethnic Group | Unknown | + + + Author + + + | Author | [email or web address] | + + + | Organization | [facility] | + + + | Address | Unknown | + + + | Phone | Unavailable | + + + Support + + +---------+ + | Name | Relationship | Address | Phone | + + +---------+ + | Julio Cesar Williamson | ECON | Unknown | | + + +---------+ + Care Team Providers + +------+ + | Care Tile And Marble Setter Name | Role | Phone | + +------+ + | Alxy Clemente MD | PCP | Unavailable | + +------+ + Encounter Details +--------+ + + + + | Date | Type | Department | Care Team | Description | +--------+ + + + + | 05/01/ | Telephone | [facility] | Shirley Kingsley MA | | | 2019 | | Infectious Disease | | | | | | [address] | | | | | | [facility] [address] | | | | | | [place] [address] | | | | | | [phone] | | | +--------+ + + + [...]
--- OUTSIDE RECORDS SUMMARY | ~2018-06-17 | XMS | Encounter Summary ---
Demographics + + + | Address | [address] | | | [place] [address] | + + + | Home Phone | | + + + | Preferred Language | Unknown | + + + | Marital Status | | + + + | Mormon Affiliation | Unknown | + + + | Race | Unknown | + + + | Ethnic Group | Unknown | + + + Author + + + | Author | [employer] | + + + | Organization | [facility] | + + + | Address | Unknown | + + + | Phone | Unavailable | + + + Support + + +---------+ + | Name | Relationship | Address | Phone | + + +---------+ + | Julio Cesar Williamson | ECON | Unknown | | + + +---------+ + Care Team Providers + +------+ + | Care Slab Polisher Name | Role | Phone | + [...] + + | 06/14/ | Telephone | [facility] | Izabella Garvey, | Other (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 | | delivery address) | | | | [facility] [address] | | | | | | [place] [address] | | | | | | [phone] | | | +--------+ + + + [...]
--- OUTSIDE RECORDS SUMMARY | ~2018-06-17 | XMS | Encounter Summary ---
Demographics + + + | Address | [address] | | | [place] [address] | + + + | Home Phone | | + + + | Preferred Language | Unknown | + + + | Marital Status | | + + + | Uatsdin Affiliation | Unknown | + + + | Race | Unknown | + + + | Ethnic Group | Unknown | + + + Author + + + | Author | [employer] | + + + | Organization | [facility] | + + + | Address | Unknown | + + + | Phone | Unavailable | + + + Support + + +---------+ + | Name | Relationship | Address | Phone | + + +---------+ + | Julio Cesar Williamson | ECON | Unknown | | + + +---------+ + Care Team Providers + +------+ + | Care Hockey Player Name | Role | Phone | + [...] + + | 04/26/ | Telephone | [facility] | Izabella Garvey, | Other (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 | | status of his [place] | | | | [facility] [address] | | approval) | | | | [place] [address] | | | | | | [phone] | | | +--------+ + + + [...]
--- OUTSIDE RECORDS SUMMARY | ~2018-06-17 | XMS | Encounter Summary ---
Demographics + + + | Address | [address] | | | [place] [address] | + + + | Home Phone | | + + + | Preferred Language | Unknown | + + + | Marital Status | | + + + | Christianity Affiliation | Unknown | + + + | Race | Unknown | + + + | Ethnic Group | Unknown | + + + Author + + + | Author | [employer] [facility] | + + + | Organization | [facility] | + + + | Address | Unknown | + + + | Phone | Unavailable | + + + Support + + +---------+ + | Name | Relationship | Address | Phone | + + +---------+ + | Julio Cesar Williamson | ECON | Unknown | | + + +---------+ + Care Team Providers + +------+ + | Care Communication And Outreach Manager Name | Role | Phone | + +------+ + | Alyx Clemente MD | PCP | Unavailable | + +------+ + Reason for Visit + + + | Reason | Comments | + + + | Labs Only | 04/17/18; HCV Genosure test Cx | + + + Encounter Details +--------+ + + + + | Date | Type | Department | Care Team | Description | +--------+ + + + + | 02/28/ | Documentati | [facility] | Izabella Garvey, | Labs Only (04/17/18; | | 2019 | on Only | Infectious Disease | CHEMICAL LIBRARIAN | HCV Genosure test | | | | [address] | | Cx) | | | | [facility] [address] | | | | | | [place] [address] | | | | | | [phone] | | | +--------+ + + + [...] + + + as of this encounter Progress Notes Izabella Garvey CMA - 05/09/2018 10:52 AM PSTTest was cancelled. Abstracted lab findings and routed to Dr. Garcia. Labeled and then scanned into patients chart. RENNY VU in this encounter Plan of Treatment Not on [...] + + + in this encounter Results HCV Genosure NS3/4A (04/17/2018) + + | Specimen | + + | Blood | + + + + + | Impressions | Performed At | + + + | TEST CANCELLED Test number: [id number] Test name: HCV Genosure | [facility] | [...] be | | | performed. Izabella at [facility] was notified 05/09/18 [place] | | + + + + + + + + | Performing | Address | City/State/Zipcode | Phone Number | | Organization | | | | + + + + + | [facility] | [address] | [place] [address] | | | LABORATORY | 13 | | | + + + + + in this encounter Visit Diagnoses Not on filein this encounter"
--- OUTSIDE RECORDS SUMMARY | ~2018-06-17 | XMS | Clinical Summary ---
Demographics + + + | Address | [address] | | | [place] [address] | + + + | Home Phone | | + + + | Preferred Language | Unknown | + + + | Marital Status | | + + + | Buddhist Affiliation | Unknown | + + + | Race | Unknown | + + + | Ethnic Group | Unknown | + + + Author + + + | Author | [email or web address] | + + + | Organization | [facility] | + + + | Address | Unknown | + + + | Phone | Unavailable | + + + Support + + +---------+ + | Name | Relationship | Address | Phone | + + +---------+ + | Julio Cesar Williamson | ECON | Unknown | | + + +---------+ + Care Team Providers + +------+ + | Care Tool Programmer Name | Role | Phone | + [...] + + | 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) | | [...] (Patient | | 2018 | | | 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 COLLECTOR/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 | called to update | | | | | | delivery address) | +--------+ + + + + | 05/13/ | Telephone | | Izabella Garvey, | Other (inquiring | | 2018 | | | SIGNALS COLLECTOR/ANALYST | about HCV medication | | | | | | [place]) | +--------+ + + + + | 05/09/ | Documentati | | Izabella Garvey, | Tyree Only (04/17/18; | | 2018 | on Only | | SIGNALS COLLECTOR/ANALYST | HCV Genosure test | | | | | | Cx) | +--------+ + + + + | 05/09/ | Telephone | | Izabella Garvey, | Rodrigo (Genosure test | | 2018 | | | SIGNALS COLLECTOR/ANALYST | Cx) | +--------+ + + + + | 05/01/ | Telephone | | Shirley Kingsley MA | | | 2018 | | | | | +--------+ + + + + | 04/26/ | Telephone | | Izabella Garvey, | Rodrigo (patient is | | 2018 | | | 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 [...] + + | TEST CANCELLED Test number: [id number] Test name: HCV Genosure | [facility] | [...] be | | | performed. Izabella at [facility] was notified 05/09/18 HANS | | + + + + + + + + | Performing | Address | City/State/Zipcode | Phone Number | | Organization | | | | + + + + + | [facility] | [address] | [place] [address] | | | LABORATORY | 13 | [...] + + + + | Necroinflammat | A2/Q3Wadkpsw: Equal | | [facility] | | Activity [...] + + + | [facility] | [address] | [place] [address] | | | LABORATORY | 13 | [...] + + + | [facility] | [address] | [place] [address] | | | LABORATORY | 13 | [...] | [address] | [place] [address] | | | LABORATORY | 13 | [...] | [address] | [place] [address] | | | LABORATORY | 13 | [...] +------+-------+ + | MEDICAID | EASTER | [id number] | | | [address] | | | N | | | | [place] | | | [place] | | | | [address] | | | HEALTHCARE ADVISORY SERVICES MANAGER | | | | | + +--------+ [...] Self | [birth year] Home: | [address] [facility] | | | al/Fam | | 1955 | [phone] | [address] [place] [address] | | | [place] | | | [address] | [place] | | | | | | | [address] | + +--------+ +--------+ + +
--- OUTSIDE RECORDS SUMMARY | ~2018-06-17 | XMS | Encounter Summary ---
Demographics + + + | Address | [address] | | | [place] [address] | + + + | Home Phone | | + + + | Preferred Language | Unknown | + + + | Marital Status | | + + + | Nondenominational Affiliation | Unknown | + + + | Race | Unknown | + + + | Ethnic Group | Unknown | + + + Author + + + | Author | [facility] [employer] | + + + | Organization | [facility] | + + + | Address | Unknown | + + + | Phone | Unavailable | + + + Support + + +---------+ + | Name | Relationship | Address | Phone | + + +---------+ + | Julio Cesar Williamson | ECON | Unknown | | + + +---------+ + Care Team Providers + +------+ + | Care Broke Beater Machine Operator Name | Role | Phone | [...] + + | 02/28/ | Documentati | [facility] | Izabella Garvey, | Labs Only (04/17/18; | | 2019 | on Only | Infectious Disease | UC ARCHITECT | HCV Genosure test | | | | [address] | | Cx) | | | | [facility] [address] | | | | | | [place] [address] | | | | | | [phone] | | | +--------+ + + + [...] + + | TEST CANCELLED Test number: [id number] Test name: HCV Genosure | [facility] | [...] be | | | performed. Izabella at [facility] was notified 05/09/18 [place] | | + + + + + + + + | Performing | Address | City/State/Zipcode | Phone Number | | Organization | | | | + + + + + | [facility] | [address] | [place] [address] | | | LABORATORY | 13 | | | + + + + + in this encounter Visit Diagnoses Not on filein this encounter"
[~2018-06-17 13:00] MED LIST changes: +DELTASONE20 MG PO; +IBU-200200 MG PO; +QVAR REDIHALE10.6 G1 INH
--- OUTSIDE RECORDS SUMMARY | 2018-06-17 13:04 | XMS ---
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 Manish VISIT COUNT (12 MO.) Victor Hugo Bravo TOTAL 3 NOTE: Visits indicate total known visits. 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 - Polyp of colon - Personal history of nicotine dependence - Benign neoplasm of rectosigmoid junction - senior living (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 antithrombotics/antiplatelets - Chronic viral hepatitis C - Encounter for screening for malignant neoplasm of colon - Encounter for screening for malignant neoplasm of colon - Chronic obstructive pulmonary disease, unspecified - senior living (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 inhaled steroids - Family history of malignant neoplasm of digestive organs - Homelessness 05/02/2018 05:21 [facility] TYPE: Observation COMPLAINT: - ACUTE EXACERBATION OF COPD DIAGNOSES: - senior living (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 inhaled steroids - Hyperlipidemia, unspecified - Benign prostatic hyperplasia without lower urinary tract symptoms - Homelessness - Nicotine dependence, unspecified, uncomplicated - Other usp (current) drug therapy - Acute bronchospasm - 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 - truck terminal manager (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 inhaled steroids - Pneumonia due to Streptococcus pneumoniae - truck terminal manager (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 inhaled steroids - Homelessness - Chronic obstructive pulmonary disease with acute lower respiratory infection - Nicotine dependence, cigarettes, uncomplicated - Chronic obstructive pulmonary disease with (acute) exacerbation - Other nonspecific abnormal finding of lung field - Other usp (current) drug therapy - Chronic viral hepatitis C - Pneumonia, unspecified organism - 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
[2018-06-17] MEDS ORDERED: PREDNISONE20 MG PO (16:05)
[2018-06-17] MEDS ORDERED: DOXYCYCLINE HY100 MG PO (16:05)
--- NOTE | 2018-06-18 13:57 | EKG ---
[facility] [address] [facility] [place] [address] Signed Normal sinus rhythm Normal ECG When compared with ECG of 02-MAY-2018 05:35, premature ventricular complexes are no longer present Confirmed by OMAR SOTO MD ([id number]) on 06/18/2018 1:57:00 PM Electronically Signed By: OMAR SOTO MD 06/18/18 1357 PATIENT NAME: MAITE MARIE Electrocardiogram DATE OF : 55 PHYSICIAN: OMAR SOTO MD REPORT #: [id number] REPORT IS CONFIDENTIAL AND NOT TO BE RELEASED WITHOUT AUTHORIZATION
== END 2018-06-17 16:16 | disposition home or self-care (01) ==
LOC: ED 13:00
DX: J44.1 Chronic obstructive pulmonary disease with (acute) exacerbation (principal); I25.2 Old myocardial infarction; F17.200 Nicotine dependence, unspecified, uncomplicated; Z79.899 Other long term (current) drug therapy; Z79.82 Long term (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 aspirin
CPT/HCPCS: 71045; 80053; 83880; 85025; 93005; 93010; 94640; 96374; 99284-25; 99406; J2930